=== PATIENT | female | born 1965 | race Caucasian/White ===

== ENCOUNTER 2016-11-04 09:50 | Inpatient (IN) | payer BC ==
[~2016-11-04] VITALS: Ht 165.1 cm; Wt 90.7 kg
[~2016-11-04 09:50] MED LIST: ASPI-482 PO; CANA100T PO; FLUT1DIS3 IH; INSU100V13 SQ; LANS30CA66 PO; LISI40TA PO; LORA-434 PO; MONT10TA6 PO; NAPR500T PO; OMEP40CA5 PO; ONDA4TAB7 PO; OXYC5CAP PO; SIMV40TA3 PO; SITA1TAB11 PO; VENTOLIN HFA18 GM INH
[2016-11-04] MEDS ORDERED: ASPIRIN 325 MG TABLET PO ONE (10:45)
[2016-11-04 10:54] LABS: CALCIUM 9.7 mg/dL (8.5-10.1); CREATININE 0.8 mg/dL (0.6-1.0); GFR 75.6; POTASSIUM 4.2 mmol/L (3.5-5.1)
[2016-11-04 10:56] LABS: MAGNESIUM 2.1 mg/dL (1.8-2.4)
[2016-11-04 10:59] LABS: BASO # 0.1 x10^3/uL (0.0-0.2); BASO % 1 % (0-3); EOS % 2 % (0-3); HEMATOCRIT 44.5 % (36.0-47.0); HEMOGLOBIN 15.1 g/dL (12.0-15.5); LYMPH # 1.9 x10^3/uL (1.0-4.8); LYMPH % 17 % (24-48); MEAN CORPUSCULAR HEMOGLOBIN 30 pg (25-35); MEAN CORPUSCULAR HGB CONC 34 g/dL (31-37); MEAN CORPUSCULAR VOLUME 87 fL (79-100); MONO % 6 % (0-9); NEUT % 74 % (31-73); PLATELET COUNT 198 x10^3/uL (140-400); RED BLOOD COUNT 5.13 x10^6/uL (3.50-5.40); RED CELL DISTRIBUTION WIDTH 14.1 % (11.5-14.5); WHITE BLOOD COUNT 11.1 x10^3/uL (4.0-11.0)
[2016-11-04 11:00] LABS: BILIRUBIN,URINE NEGATIVE (NEG); GLUCOSE,URINE >=1000 mg/dL (NEG); NITRITE,URINE NEGATIVE (NEG); PROTEIN,URINE NEGATIVE (NEG-TRACE); UROBILINOGEN,URINE 0.2 mg/dL (0.2 mg/dL)
[2016-11-04] MEDS ORDERED: ASPIRIN CHEWABLE 81 MG TABLET. PO ONE (11:00)
--- NOTE | 2016-11-04 11:01 | RAD ---
Indication chest pain. A single view of the chest was obtained. Note is made of a previous examination 07/20/2015. The heart and pulmonary vessels are normal. There is a granuloma in the left lung similar to the previous exam. An acute parenchymal infiltrate is not seen. There is no pleural fluid or pneumothorax. There is a density in the right chest probably reflecting scar. It is of doubtful clinical significance but follow-up imaging should be considered to confirm stability. IMPRESSION: No acute finding in the chest Density right chest, probably incidental
[2016-11-04 11:04] LABS: BARBITURATES NEG (NEG); BENZODIAZEPINES NEG (NEG); CANNABINOIDS POS (NEG); COCAINE NEG (NEG); METHADONE NEG (NEG); OPIATES NEG (NEG); PHENCYCLIDINE NEG (NEG)
[2016-11-04 11:10] LABS: CKMB MASS 1.9 ng/mL (0.0-3.6)
[2016-11-04 11:23] LABS: BACTERIA,URINE 0 /HPF (0-FEW); RBC,URINE 0 /HPF (0-2); SQUAMOUS EPITHELIAL CELL,UR FEW /LPF; WBC,URINE 0 /HPF (0-4)
[2016-11-04 11:31] LABS: INR 1.1 (0.8-1.1); PROTHROMBIN TIME PATIENT 13.4 SEC (11.7-14.0)
--- NOTE | 2016-11-04 11:33 | EKG ---
[facility] [address] [place] [address] Test Date: 2016-11-04 Test Time: 10:00:12 Pat Name: SHMUEL ACEVEDO Department: Room: Gender: F Aviation Electrician: : 1965 Requested By: LILIA LEES Order Number: [id number] Reading MD: Measurements Intervals Elizabeth Rate: 76 P: 34 IL: 134 QRS: 34 QRSD: 78 T: 41 QT: 340 QTc: 386 Interpretive Statements SINUS RHYTHM NORMAL ECG RI6.01 Unconfirmed report No previous ECG available for comparison
--- NOTE | 2016-11-04 12:50 | PHYS DOC ---
Past Medical History Past Medical History: Asthma, Diabetes-Type II, High Cholesterol, Hypertension Past Surgical History: Cholecystectomy, Tonsillectomy Additional Past Surgical Histo: Cyst removal on ovary Alcohol Use: Rarely Drug Use: Marijuana Adult General Chief Complaint Chief Complaint: CHEST PAIN HPI HPI Patient is a 51 year old female with history of diabetes type 2, hypertension, high cholesterol, who presents with a sharp 2 out of 10 left-sided chest pain that woke her up at 3 AM this morning and has been coming and going every 15 minutes. Patient states the pain radiates to her back. Patient states the pain is worse on deep breaths. She states the pain is better laying down. Review of Systems Review of Systems Constitutional: Denies fever or chills [] Eyes: Denies change in visual acuity, redness, or eye pain [] HENT: Denies nasal congestion or sore throat [] Respiratory: Denies cough or shortness of breath [] Cardiovascular: chest pain GI: Denies abdominal pain, nausea, vomiting, bloody stools or diarrhea [] : Denies dysuria or hematuria [] Musculoskeletal: Denies back pain or joint pain [] Integument: Denies rash or skin lesions [] Neurologic: Denies headache, focal weakness or sensory changes [] Endocrine: Denies polyuria or polydipsia [] Current Medications Current Medications Current Medications Medications (Trade) Dose Ordered Sig/Morris Start Time Stop Time Status Last Admin Dose Admin Acetaminophen (Tylenol) 650 mg PRN Q4HRS PRN 11/04/16 14:00 11/05/16 13:59 UNV Albuterol Sulfate (Ventolin Neb Soln) 2.5 mg RTQID 11/04/16 16:00 Aspirin (Charles Aspirin) 325 mg 1X ONCE 11/04/16 10:45 11/04/16 10:46 DC Aspirin (Children'S Aspirin) 162 mg 1X ONCE 11/04/16 11:00 11/04/16 11:01 DC 11/04/16 10:38 162 MG Aspirin (Ecotrin) 81 mg DAILY 11/05/16 09:00 Budesonide (Pulmicort) 0.5 mg RTBID 11/04/16 20:00 Docusate Sodium (Colace) 100 mg BID 11/04/16 21:00 Insulin Detemir (Levemir) 20 units HS 11/04/16 21:00 Ketorolac Tromethamine (Toradol) 15 mg PRN Q6HRS PRN 11/04/16 13:30 11/09/16 13:29 Lactulose 20 gm PRN Q12HR PRN 11/04/16 13:30 Linagliptin (Tradjenta) 5 mg DAILY 11/05/16 09:00 Lisinopril (Prinivil) 40 mg DAILY 11/05/16 09:00 Lorazepam (Ativan) 1 mg PRN QHS PRN 11/04/16 13:15 Magnesium Hydroxide (Milk Of Magnesia) 2,400 mg PRN Q12HR PRN 11/04/16 13:30 Metformin HCl (Glucophage) 1,000 mg BIDWMEALS 11/04/16 17:00 Montelukast Sodium (Singulair) 10 mg HS 11/04/16 21:00 Morphine Sulfate 2 mg PRN Q2HR PRN 11/04/16 13:30 Naproxen (Naprosyn) 500 mg PRN DAILY PRN 11/04/16 13:15 Nitroglycerin (Nitrostat) 0.4 mg PRN Q5MIN PRN 11/04/16 14:00 11/05/16 13:59 UNV Non-Formulary Medication 100 mg DAILYWBKFT 11/05/16 08:00 UNV Ondansetron HCl (Zofran Odt) 4 mg PRN BID PRN 11/04/16 13:30 Ondansetron HCl (Zofran) 4 mg PRN Q6HRS PRN 11/04/16 13:30 Oxycodone HCl (Roxicodone) 5 mg PRN Q4HRS PRN 11/04/16 13:30 Pantoprazole Sodium (Protonix) 40 mg DAILYAC 11/05/16 07:30 Prochlorperazine Edisylate (Compazine) 10 mg PRN Q6HRS PRN 11/04/16 13:30 Cancel Simvastatin (Zocor) 40 mg HS 11/04/16 21:00 Allergies Allergies Allergies Coded Allergies Type Severity Reaction Last Updated Verified Penicillins Allergy Intermediate rash 08/04/14 Yes Sulfa (Sulfonamide Antibiotics) Allergy Intermediate rash 08/04/14 Yes exenatide Allergy Intermediate N/V 08/04/14 Yes prochlorperazine Allergy Intermediate muscle rigidity 08/04/14 No Physical Exam Physical Exam Constitutional: Well developed, well nourished, no acute distress, non-toxic appearance. [] HENT: Normocephalic, atraumatic, bilateral external ears normal, oropharynx moist, no oral exudates, nose normal. [] Eyes: PERRLA, EOMI, conjunctiva normal, no discharge. [] Neck: Normal range of motion, no tenderness, supple, no stridor. [] Cardiovascular:Heart rate regular rhythm, no murmur [] Lungs & Thorax: Bilateral breath sounds clear to auscultation [] Abdomen: Bowel sounds normal, soft, no tenderness, no masses, no pulsatile masses. [] Skin: Warm, dry, no erythema, no rash. [] Back: No tenderness, no CVA tenderness. [] Extremities: No tenderness, no cyanosis, no clubbing, ROM intact, no edema. [] Neurologic: Alert and oriented X 3, normal motor function, normal sensory function, no focal deficits noted. [] Psychologic: Affect normal, judgement normal, mood normal. [] Current Patient Data Vital Signs Vital Signs Date Time Temp Pulse Resp B/P (MAP) Pulse Ox O2 Delivery O2 Flow Rate FiO2 11/04/16 12:38 67 14 116/65 (82) 97 Room Air 11/04/16 10:00 98.9 98.9 Lab Values Laboratory Tests Test 11/04/16 09:21 11/04/16 10:00 11/04/16 10:10 POC Urine HCG, Qualitative Hcg negative (Negative) Urine Collection Type Unknown Urine Color Yellow Urine Clarity Clear Urine pH 6.0 Urine Specific [place] 1.010 Urine Protein Negative mg/dL (NEG-TRACE) Urine Glucose (UA) >=1000 mg/dL (NEG) Urine Ketones (Stick) Negative mg/dL (NEG) Urine Blood Negative (NEG) Urine Nitrite Negative (NEG) Urine Bilirubin Negative (NEG) Urine Urobilinogen Dipstick 0.2 mg/dL (0.2 mg/dL) Urine Leukocyte Esterase Negative (NEG) Urine RBC 0 /HPF (0-2) Urine WBC 0 /HPF (0-4) Urine Squamous Epithelial Cells Few /LPF Urine Bacteria 0 /HPF (0-FEW) Urine Opiates Screen Neg (NEG) Urine Methadone Screen Neg (NEG) Urine Barbiturates Neg (NEG) Urine Phencyclidine Screen Neg (NEG) Urine Amphetamine/Methamphetamine Neg (NEG) Urine Benzodiazepines Screen Neg (NEG) Urine Cocaine Screen Neg (NEG) Urine Cannabinoids Screen Pos (NEG) Urine Ethyl Alcohol Neg (NEG) White Blood Count 11.1 x10^3/uL (4.0-11.0) H Red Blood Count 5.13 x10^6/uL (3.50-5.40) Hemoglobin 15.1 g/dL (12.0-15.5) Hematocrit 44.5 % (36.0-47.0) Mean Corpuscular Volume 87 fL (79-100) Mean Corpuscular Hemoglobin 30 pg (25-35) Mean Corpuscular Hemoglobin Concent 34 g/dL (31-37) Red Cell Distribution Width 14.1 % (11.5-14.5) Platelet Count 198 x10^3/uL (140-400) Neutrophils (%) (Auto) 74 % (31-73) H Lymphocytes (%) (Auto) 17 % (24-48) L Monocytes (%) (Auto) 6 % (0-9) Eosinophils (%) (Auto) 2 % (0-3) Basophils (%) (Auto) 1 % (0-3) Neutrophils # (Auto) 8.2 x10^3uL (1.8-7.7) H Lymphocytes # (Auto) 1.9 x10^3/uL (1.0-4.8) Monocytes # (Auto) 0.7 x10^3/uL (0.0-1.1) Eosinophils # (Auto) 0.2 x10^3/uL (0.0-0.7) Basophils # (Auto) 0.1 x10^3/uL (0.0-0.2) Prothrombin Time 13.4 SEC (11.7-14.0) Prothrombin Time INR 1.1 (0.8-1.1) D-Dimer (Rebecca) 0.39 ug/mlFEU (0.00-0.50) Sodium Level 137 mmol/L (136-145) Potassium Level 4.2 mmol/L (3.5-5.1) Chloride Level 103 mmol/L (98-107) Carbon Dioxide Level 21 mmol/L (21-32) Anion Gap 13 (6-14) Blood Urea Nitrogen 13 mg/dL (7-20) Creatinine 0.8 mg/dL (0.6-1.0) Estimated GFR (Cockcroft-Gault) 75.6 Glucose Level 143 mg/dL (70-99) H Calcium Level 9.7 mg/dL (8.5-10.1) Magnesium Level 2.1 mg/dL (1.8-2.4) Creatine Kinase 130 U/L (26-192) Creatine Kinase MB (Mass) 1.9 ng/mL (0.0-3.6) Creatine Kinase MB Relative Index 1.5 % (0-4) Troponin I Quantitative < 0.017 ng/mL (0.000-0.055) QR-Nhl-O-Type Natriuretic Peptide 46 pg/mL (0-124) Laboratory Tests 11/04/16 10:10 Laboratory Tests 11/04/16 10:10 EKG EKG 10:[address] Poole sinus rhythm heart rate 76 QRS interval 78 no STEMI [] Radiology/Procedures Radiology/Procedures [] Course & Med Decision Making Course & Med Decision Making Pertinent Labs and Imaging studies reviewed. (See chart for details) This is a 51-year-old female patient presented to the ED with a 2 out of 10 left -sided chest pain that has been going on intermittently since 3 AM this morning. Patient's cardiac workup is negative. She will be admitted for chest pain rule out. Consulted with Dr. Son who accepted patient for admission. Consult was made for cardiology Dragon Disclaimer Dragon Disclaimer This electronic medical record was generated, in whole or in part, using a voice recognition dictation system. Departure Departure Impression: Primary Impression: Chest pain Disposition: HOME, SELF-CARE Condition: STABLE Referrals: MAEGAN GAO MD (PCP) Problem Qualifiers Primary Impression: Chest pain Chest pain type: unspecified Qualified Codes: R07.9 - Chest pain, unspecified LILIA LEES INSURANCE CLAIMS CLERK Nov 04, 2016 12:50
--- NOTE | 2016-11-04 13:13 | PDOC1 ---
History and Physical Date of Admission Date of Admission DATE: 11/04/16 TIME: 13:06 Identification/Chief Complaint Chief Complaint chest pains Problems: Source Source: Caregiver, Chart review, Patient History of Present Illness History of Present Illness 51 y/o pleasant female with HTN, DM 2 hgba1c 7 in August 2016, dyslipidemia on statin, PCP Dr. Madden/Dr. Wang come sin for CP that woke her up from sleep 3 AM, HAs been having CP for maybe 2-3 mos now, intermittent, midsternal, no radiation to left arm, no precipitating or alleviating factor. CP happened like every 30 mins, described as heavy pains, no presyncope or syncopal sxs, no reports of diaphoresis. Feels nauseus, bucket at bedside but no emesis,. Went back to sleep 4:30 AM, but awoke at 6:30 am bec of CP again Last MPI was 8 yrs ago when she had CP involving radn left arm, that was neg,. OCcasional drinker, non smoker, grandparents of heart attack at age 80s Past Medical History Cardiovascular: HTN Pulmonary: Asthma GI: Other Psych: Depression Renal/: No pertinent hx Endocrine: Diabetes Past Surgical History Past Surgical History: Tonsillectomy, Other Family History Family History: No Significant, Coronary Artery Disease, Hypertension Social History Smoke: No ALCOHOL: occassional Drugs: None Current Problem List Problem List Problems Medical Problems: (1) Chest pain Status: Acute Problems: Current Medications Current Medications Current Medications Aspirin (Charles Aspirin) 325 mg 1X ONCE PO ; Start 11/04/16 at 10:45; Stop at 10:46; Status DC Aspirin (Children'S Aspirin) 162 mg 1X ONCE PO Last administered on 11/04/16t 10:38; Start 11/04/16 at 11:00; Stop 11/04/16 at 11:01; Status DC Active Scripts Active Reported Oxycodone Hcl 5 Mg Capsule 5 Mg PO Q4HRS PRN Invokana (Canagliflozin) 100 Mg Tablet 100 Mg PO DAILYWBKFT Simvastatin 40 Mg Tablet 40 Mg PO HS Naprosyn (Naproxen) 500 Mg Tablet 500 Mg PO PRN DAILY PRN Ativan (Lorazepam) 1 Mg Tablet 1 Mg PO PRN QHS PRN Ventolin Hfa Inhaler (Albuterol Sulfate) 18 Gm Hfa.aer.ad 2 Puff INH PRN QID PRN Zofran (Ondansetron Hcl) 4 Mg Tablet 4 Mg PO PRN BID PRN Levemir (Insulin Detemir) 100 Unit/1 Ml Vial 20 Unit SQ HS Janumet 50-1,000 Mg Tablet (Sitagliptin Phos/Metformin Hcl) 1 Each Tablet 1 Each PO BID Prevacid (Lansoprazole) 30 Mg Capsule.dr 30 Mg PO DAILY07 Aspir 81 (Aspirin) 81 Mg Tablet.dr 1 Tab PO DAILY Lisinopril 40 Mg Tablet 1 Tab PO DAILY Advair 250-50 Diskus (Fluticasone/Salmeterol) 1 Each Disk.w.dev 1 Puff IH BID Singulair Tablet (Montelukast Sodium) 10 Mg Tablet 10 Mg PO HS Allergies Allergies: Coded Allergies: Penicillins (Verified Allergy, Intermediate, rash, 08/04/14) Sulfa (Sulfonamide Antibiotics) (Verified Allergy, Intermediate, rash, 08/04) exenatide (Verified Allergy, Intermediate, N/V, 08/04/14) prochlorperazine (Unverified Allergy, Intermediate, muscle rigidity, ) ROS Review of System all 14 pt reveiwed, positive in HPI, all else is neg Physical Exam General: Alert, Oriented X3, Cooperative, No acute distress HEENT: Atraumatic, PERRLA, EOMI Lungs: Clear to auscultation, Normal air movement Heart: S1S2, RRR, no thrills, no rubs, no gallops, no murmurs Cardiovascular: S1, S2 Breasts: Normal, Rt breast nml w/o mass, Lt breast nml w/o mass, Nipples normal Abdomen: Normal bowel sounds, Soft, No tenderness, No hepatosplenomegaly, No masses Rectal Exam: not examined PELVIC: Nml ext genitalia Extremities: No clubbing Skin: No rashes, No breakdown, No significant lesion Neuro: Normal gait, Normal speech, Strength at 5/5 X4 ext, Normal tone, Sensation intact, Cranial nerves 3-12 NL, Reflexes 2+ Psych/Mental Status: Mental status NL, Mood NL Vitals Vitals Vital Signs Date Time Temp Pulse Resp B/P (MAP) Pulse Ox O2 Delivery O2 Flow Rate FiO2 11/04/16 10:38 70 141/77 (98) 96 Room Air 11/04/16 10:00 98.9 20 98.9 Labs Labs Laboratory Tests Test 11/04/16 09:21 11/04/16 10:00 11/04/16 10:10 Bedside Urine HCG, Qualitative Hcg negative (Negative) Urine Collection Type Unknown Urine Color Yellow Urine Clarity Clear Urine pH 6.0 Urine Specific [place] 1.010 Urine Protein Negative mg/dL (NEG-TRACE) Urine Glucose (UA) >=1000 mg/dL (NEG) Urine Ketones (Stick) Negative mg/dL (NEG) Urine Blood Negative (NEG) Urine Nitrite Negative (NEG) Urine Bilirubin Negative (NEG) Urine Urobilinogen Dipstick 0.2 mg/dL (0.2 mg/dL) Urine Leukocyte Esterase Negative (NEG) Urine RBC 0 /HPF (0-2) Urine WBC 0 /HPF (0-4) Urine Squamous Epithelial Cells Few /LPF Urine Bacteria 0 /HPF (0-FEW) Urine Opiates Screen Neg (NEG) Urine Methadone Screen Neg (NEG) Urine Barbiturates Neg (NEG) Urine Phencyclidine Screen Neg (NEG) Urine Amphetamine/Methamphetamine Neg (NEG) Urine Benzodiazepines Screen Neg (NEG) Urine Cocaine Screen Neg (NEG) Urine Cannabinoids Screen Pos (NEG) Urine Ethyl Alcohol Neg (NEG) White Blood Count 11.1 x10^3/uL (4.0-11.0) Red Blood Count 5.13 x10^6/uL (3.50-5.40) Hemoglobin 15.1 g/dL (12.0-15.5) Hematocrit 44.5 % (36.0-47.0) Mean Corpuscular Volume 87 fL (79-100) Mean Corpuscular Hemoglobin 30 pg (25-35) Mean Corpuscular Hemoglobin Concent 34 g/dL (31-37) Red Cell Distribution Width 14.1 % (11.5-14.5) Platelet Count 198 x10^3/uL (140-400) Neutrophils (%) (Auto) 74 % (31-73) Lymphocytes (%) (Auto) 17 % (24-48) Monocytes (%) (Auto) 6 % (0-9) Eosinophils (%) (Auto) 2 % (0-3) Basophils (%) (Auto) 1 % (0-3) Neutrophils # (Auto) 8.2 x10^3uL (1.8-7.7) Lymphocytes # (Auto) 1.9 x10^3/uL (1.0-4.8) Monocytes # (Auto) 0.7 x10^3/uL (0.0-1.1) Eosinophils # (Auto) 0.2 x10^3/uL (0.0-0.7) Basophils # (Auto) 0.1 x10^3/uL (0.0-0.2) Prothrombin Time 13.4 SEC (11.7-14.0) Prothromb Time International Ratio 1.1 (0.8-1.1) D-Dimer (Rebecca) 0.39 ug/mlFEU (0.00-0.50) Sodium Level 137 mmol/L (136-145) Potassium Level 4.2 mmol/L (3.5-5.1) Chloride Level 103 mmol/L (98-107) Carbon Dioxide Level 21 mmol/L (21-32) Anion Gap 13 (6-14) Blood Urea Nitrogen 13 mg/dL (7-20) Creatinine 0.8 mg/dL (0.6-1.0) Estimated GFR (Cockcroft-Gault) 75.6 Glucose Level 143 mg/dL (70-99) Calcium Level 9.7 mg/dL (8.5-10.1) Magnesium Level 2.1 mg/dL (1.8-2.4) Creatine Kinase 130 U/L (26-192) Creatine Kinase MB (Mass) 1.9 ng/mL (0.0-3.6) Creatine Kinase MB Relative Index 1.5 % (0-4) Troponin I Quantitative < 0.017 ng/mL (0.000-0.055) TM-Uqu-H-Type Natriuretic Peptide 46 pg/mL (0-124) Laboratory Tests Test 11/04/16 09:21 11/04/16 10:00 11/04/16 10:10 Bedside Urine HCG, Qualitative Hcg negative (Negative) Urine Collection Type Unknown Urine Color Yellow Urine Clarity Clear Urine pH 6.0 Urine Specific [place] 1.010 Urine Protein Negative mg/dL (NEG-TRACE) Urine Glucose (UA) >=1000 mg/dL (NEG) Urine Ketones (Stick) Negative mg/dL (NEG) Urine Blood Negative (NEG) Urine Nitrite Negative (NEG) Urine Bilirubin Negative (NEG) Urine Urobilinogen Dipstick 0.2 mg/dL (0.2 mg/dL) Urine Leukocyte Esterase Negative (NEG) Urine RBC 0 /HPF (0-2) Urine WBC 0 /HPF (0-4) Urine Squamous Epithelial Cells Few /LPF Urine Bacteria 0 /HPF (0-FEW) Urine Opiates Screen Neg (NEG) Urine Methadone Screen Neg (NEG) Urine Barbiturates Neg (NEG) Urine Phencyclidine Screen Neg (NEG) Urine Amphetamine/Methamphetamine Neg (NEG) Urine Benzodiazepines Screen Neg (NEG) Urine Cocaine Screen Neg (NEG) Urine Cannabinoids Screen Pos (NEG) Urine Ethyl Alcohol Neg (NEG) White Blood Count 11.1 x10^3/uL (4.0-11.0) Red Blood Count 5.13 x10^6/uL (3.50-5.40) Hemoglobin 15.1 g/dL (12.0-15.5) Hematocrit 44.5 % (36.0-47.0) Mean Corpuscular Volume 87 fL (79-100) Mean Corpuscular Hemoglobin 30 pg (25-35) Mean Corpuscular Hemoglobin Concent 34 g/dL (31-37) Red Cell Distribution Width 14.1 % (11.5-14.5) Platelet Count 198 x10^3/uL (140-400) Neutrophils (%) (Auto) 74 % (31-73) Lymphocytes (%) (Auto) 17 % (24-48) Monocytes (%) (Auto) 6 % (0-9) Eosinophils (%) (Auto) 2 % (0-3) Basophils (%) (Auto) 1 % (0-3) Neutrophils # (Auto) 8.2 x10^3uL (1.8-7.7) Lymphocytes # (Auto) 1.9 x10^3/uL (1.0-4.8) Monocytes # (Auto) 0.7 x10^3/uL (0.0-1.1) Eosinophils # (Auto) 0.2 x10^3/uL (0.0-0.7) Basophils # (Auto) 0.1 x10^3/uL (0.0-0.2) Prothrombin Time 13.4 SEC (11.7-14.0) Prothromb Time International Ratio 1.1 (0.8-1.1) D-Dimer (Rebecca) 0.39 ug/mlFEU (0.00-0.50) Sodium Level 137 mmol/L (136-145) Potassium Level 4.2 mmol/L (3.5-5.1) Chloride Level 103 mmol/L (98-107) Carbon Dioxide Level 21 mmol/L (21-32) Anion Gap 13 (6-14) Blood Urea Nitrogen 13 mg/dL (7-20) Creatinine 0.8 mg/dL (0.6-1.0) Estimated GFR (Cockcroft-Gault) 75.6 Glucose Level 143 mg/dL (70-99) Calcium Level 9.7 mg/dL (8.5-10.1) Magnesium Level 2.1 mg/dL (1.8-2.4) Creatine Kinase 130 U/L (26-192) Creatine Kinase MB (Mass) 1.9 ng/mL (0.0-3.6) Creatine Kinase MB Relative Index 1.5 % (0-4) Troponin I Quantitative < 0.017 ng/mL (0.000-0.055) XZ-Hwk-E-Type Natriuretic Peptide 46 pg/mL (0-124) VTE Prophylaxis Ordered VTE Prophylaxis Devices: Yes VTE Pharmacological Prophylaxi: Yes Assessment/Plan Assessment/Plan 1. Atypical CP in an adult at rest 2. HTN, controlled 3. DM2 with relatively good control, hgba1c 7 4. Dyslipidemia on statin 5. Obesity, BMI 33 PLAn: Admit CARds consult Cycle CE NPO until seen by cards Resume home meds Seen at ER 13 [facility] ER mid level provider KYLAH DUNNE MD Nov 04, 2016 13:13
[2016-11-04] MEDS ORDERED: NAPROXEN 500 MG TABLET PO PRN (13:15)
[2016-11-04] MEDS ORDERED: ACETAMINOPHEN 325 MG TABLET. PO PRN ×2 (13:30→14:00)
[2016-11-04] MEDS ORDERED: ONDANSETRON ODT 4 MG TAB.RAPDIS. PO PRN (13:30)
[2016-11-04] MEDS ORDERED: oxyCODONE IR 5 MG TABLET PO PRN (13:30)
[2016-11-04] MEDS ORDERED: KETOROLAC 15 MG/ML VIAL. IV PRN (13:30)
[2016-11-04] MEDS ORDERED: PROCHLORPERAZINE 10 MG/2 ML VIAL. IV PRN (13:30)
[2016-11-04] MEDS ORDERED: LACTULOSE 20 GM/30 ML SOLUTION. PO PRN (13:30)
[2016-11-04] MEDS ORDERED: MORPHINE SULFATE 2 MG/ML DISP.SYRIN. IV PRN (13:30)
[2016-11-04] MEDS ORDERED: ONDANSETRON PF 4 MG/2 ML VIAL. IV PRN (13:30)
[2016-11-04] MEDS ORDERED: MAGNESIUM HYDROXIDE 2,400 MG/30 ML ORAL.SUSP. PO PRN (13:30)
[2016-11-04] MEDS ORDERED: ALBUTEROL SULFATE 2.5 MG/3 ML NEBU. NEB PRN (13:45)
[2016-11-04] MEDS ORDERED: NITROGLYCERIN SUBLINGUAL 0.4 MG BOTTLE OF 25. SL PRN (14:00)
--- NOTE | 2016-11-04 14:46 | ACF ---
Admit Criteria Forms Admit Criteria Forms Admit Criteria Forms CARDIOLOGY GRG Clinical Indications for Admission to Inpatient Care ( Place 'X' for any and all applicable criteria): Hospital admission is needed for appropriate care of the patient because of ANY ONE of the following (1): [ ] I. Hemodynamic instability as indicated by ALL of the following (1)(2)(3) (4)(5) [ ]a) Vital signs or other findings not as expected for chronic patient condition or baseline [ ]b) Instability indicated by ANY ONE of the following: [ ]i) Hypotension [ ]ii) Symptomatic Tachycardia unresponsive to treatment ( e.g., analgesia, fluids, sedation as indicated) [ ]iii) Inadequate perfusion indicated by ANY ONE of the following: [ ] 1) Lactic acidosis (> 2 mmol/L) [ ] 2) New abnormal capillary refill (> 3 seconds) [ ] 3) Reduced urine output [ ] 4) New altered mental status [ ]iv) Orthostatic vital sign changes unresponsive to treatment (e.g., fluids) [ ]v) IV inotropic or vasopressor medication required to maintain adequate blood pressure or perfusion [ ] II. Severe heart failure as indicated by ANY ONE of the following(17)(18) [ ]a) Respiratory distress [ ]b) Hypotension [ ]c) Anasarca (refractory to outpatient therapy) [ ]d) Cardiac arrhythmias of immediate concern [ ]e) Myocardial ischemia [ ] III. Cardiac arrhythmias or findings of immediate concern indicated by ANY ONE of the following (19)(20): [ ] a) Heart rhythms that are inherently dangerous or unstable indicated by ANY ONE of the following (21)(22)(23): [ ] i) Resuscitated ventricular fibrillation or cardiac arrest [ ] ii) Ventricular escape rhythm [ ] iii) Sustained ventricular tachycardia (30 seconds or more of ventricular rhythm at greater than 100 beats per minute) [ ] iv) Nonsustained ventricular tachycardia and ANY ONE of the following: [ ] 1) Suspected cardiac ischemia as cause or consequence of ventricular tachycardia [ ] 2) In setting of acute myocarditis [ ] b) Unstable cardiac conduction defects indicated by ANY ONE of the following(23)(24)(25) [ ] i) Type II second-degree atrioventricular block [ ]ii) Third-degree atrioventricular block [ ]iii) New-onset left bundle branch block with suspected myocardial ischemia [ ]c) Any heart rhythm and ANY ONE of the following (21)(22)(26)(27) (28) [ ] i) Continuous long-term ECG monitoring needed (e.g., initiation of drug requiring monitoring for more than 24 hours) [ ] ii) Patient has automatic implanted cardioverter defibrillator that is repeatedly firing, malfunctioning, or in need of immediate adjustment of settings beyond the scope of ambulatory or observation care [ ]d) Heart rhythms of concern due to ANY ONE of the following: [ ] i) Hypotension [ ] ii) Respiratory distress [ ] iii) Association with other significant symptoms (e.g., bradycardia with syncope or ongoing dizziness, supraventricular tachycardia with chest pain (14)(15)(17) [ ] IV. Monitoring for cardiac contusion beyond the scope of observation care needed [A](30)(31)(32) [ ] V. Surgical or device complication (e.g., valve replacement complication , pacemaker dysfunction) (35)(41)(44)(45)(46) [ ] . Inpatient palliative care needed. [B](49) Also use Inpatient Palliative Care Criteria [ ] VII. Nonbacterial thrombotic (marantic) endocarditis (36)(43)(47)(48) [X ] VIII. Cardiology condition, symptom, or finding for which emergency and observation care has failed or are not considered appropriate. [ ] IX. Acute valvular disease requiring inpatient as indicated by ANY ONE of the following (41) [ ]a) Acute valvular regurgitation (42) [ ]b) Noninfectious valvulitis (43) [ ]c) Obstructive valve thrombosis [ ]d) Paravalvular leak [ ]e) Other significant valvular disorder remaining after emergency or observation level of care (as appropriate) [ ]X. Pericardial disease requiring inpatient treatment as indicated by ANY ONE of the following (33)(34)(35)(36)(37) [ ]a) Suspected tamponade (38)(39)(40) [ ]b) Hemopericardium [ ]c) Other significant pericardial disorder remaining after emergency or observation level of care (as appropriate) [ ] XI. Cardiac ischemia beyond scope of emergency and observation care. [ ] XII. Hypertension requiring inpatient treatment as indicated by ANY ONE of the following (6)(7)(8) [ ]a) SBP greater than 220 mm Hg or DBP greater than 120 mmHg despite treatment [ ]b) SBP greater than 140 mm Hg or DBP greater than 100 mm Hg with evidence of acute end organ damage as indicated by ANY ONE of the following [ ] i) Encephalopathy [ ] ii) Acute renal failure as indicated by new onset of ANY ONE of the following (9)(10)(11)(12)(13) [ ]1) 3-fold rise in serum creatinine from baseline [ ]2) Serum creatinine greater than 4 mg/dL ( 354 micromoles/L) with acute rise greater than 0.5 mg/dL (44.2 micromoles/L) [ ]3) Reduction of more than 75% in estimated glomerular filtration rate from baseline [ ]4) Estimated glomerular filtration rate less than 35 mL/min/1.73m2 (0.59 mL/sec/1.73m2) in child up to 18 years of age [ ]5) Cessation of urine output indicated by ALL of the following [ ]A. Adequate volume status [ ]B. Inadequate urine output as indicated by ANY ONE of the following [ ]a. Urine output less than 0.3 mL/kg/hr for 24 hours [ ]b. Anuria (urine output less than 0.1 mL/kg/hr) for 12 hours [ ] iii) Aortic dissection [ ] iv) Myocardial Ischemia [ ] v) Left ventricular heart failure [ ]vi) Retinal Hemorrhage [ ]vii) Other significant finding [ ]c) Hypertension in child requiring inpatient treatment as indicated by ALL of the following(14)(15)(16) [ ] i) Outpatient treatment not effective, not available, or not appropriate [ ]ii) SBP or DBP greater than 95th percentile for age [ ]iii) Evidence of acute end organ damage as indicated by ANY ONE of the following [ ]1) Altered mental status [ ]2) Acute renal failure as indicated by new onset of ANY ONE of the following(9)(10)(11)(12)(13) [ ]A. 3-fold rise in serum creatinine from baseline [ ]B. Serum creatinine greater than 4 mg/dL (354 micromoles/L) with acute rise greater than 0.5 mg/dL (44.2 micromoles/L) [ ]C. Reduction of more than 75% in estimated glomerular filtration rate from baseline [ ]D. Estimated glomerular filtration rate less than 35 mL/min/1.73m2 (0.59 mL/sec/1.73m2) in child up to 18 years of age [ ]E. Cessation of urine output indicated by ALL of the following [ ]a. Adequate volume status [ ]b. Inadequate urine output as indicated by ANY ONE of the following [ ]i) Urine output less than 0.3 mL/kg/hr for 24 hours [ ]ii) Anuria ( urine output less than 0.1 mL/kg/hr) for 12 hours [ ]3) Severe headache [ ]4) Visual disturbance [ ]5) Retinal hemorrhage [ ]6) Other significant finding [ ]XIII. Complications of transplanted heart indicated by ANY ONE of the following(61): [ ]a) Acute graft rejection requiring inpatient management (eg, intravenous immunosuppression)(62)(63) [ ]b) Acute graft heart failure indicated by ANY ONE of the following(64): [ ]i) Hemodynamic instability [ ]ii) Cardiac arrhythmias of immediate concern [ ]iii) Pulmonary edema that is very severe (eg, mechanical ventilation needed, imminent or likely, need for 100% oxygen to keep oxygen saturation above 90%) [ ]iv) Pulmonary edema that is persistent as indicated by ALL of the following: [ ]1) New need for oxygen therapy to keep oxygen saturation above 90% (or increased FiO2 need from baseline) [ ]2) Has not improved sufficiently with emergency department or observation care IV diuretics or other heart failure treatments[E] [ ]v) Altered mental status that is severe or persistent [ ]vi) Increased creatinine (new on laboratory test) with reduction of more than 50% in estimated glomerular filtration rate from baseline [ ]vii) Progressively (ongoing) rising creatinine (known from past laboratory test) with reduction of more than 25% in estimated glomerular filtration rate from baseline [ ]viii) Acute renal failure [ ]ix) Acute peripheral ischemia (eg, examination shows pulseless, cool, mottled, or cyanotic extremity) [ ]x) Pulmonary artery catheter monitoring needed [ ]xi) Other sign or symptom of heart failure requiring inpatient treatment (ie, too severe or not responsive to outpatient and observation care treatment) [ ]c) Infection requiring inpatient management (eg, Hemodynamic instability, need for intravenous antimicrobial treatment)(66)(67)(68)(69)(70) [ ]d) Cardiac allograft vasculopathy requiring inpatient management ( eg evidence of cardiac ischemia)(71) [ ]e) Other complication of transplanted heart (eg, stroke, severe pulmonary hypertension, severe valvular dysfunction) requiring inpatient management(72) The original [facility] content created by [facility] [employer] has been revised. The portions of the content which have been revised are identified through the use of italic text or in bold, and [facility] has neither reviewed nor approved the modified material. All other unmodified content is copyright [facility]. Please see references footnoted in the original [facility] edition 2016 HELEN MARTINEZ Nov 04, 2016 14:46
--- NOTE | 2016-11-04 15:37 | PDOC2 ---
CARDIAC CONSULT DATE OF CONSULT Date of Consult DATE: 11/04/16 TIME: 15:37 REASON FOR CONSULT Reason for Consult: Chest Pain REFERRING PHYSICIAN Referring Physician: Paty Cramer APRN SOURCE Source: Chart review, Patient HISTORY OF PRESENT ILLNESS HISTORY OF PRESENT ILLNESS This is a 5 yo female who presented with complaints of chest pain. Patient reports pain has been ongoing intermittently for the last couple of months. Most recently, patient woke up at 3am this morning with squeezing sensation in her left chest. Subsequently became sharp. Associated with nausea and diaphoresis. No palpitations or SOA. Does reports having some dizziness over the weekend, which has also been occurring intermittently over the last couple of months. Generally, this is associated with feeling flush and having a "butterfly" rash on her face and is associated with nausea. Resolves after a couple of minutes without intervention. No prior h/o CAD or previous cardiac workup. PAST MEDICAL HISTORY Cardiovascular: HTN, Hyperlipidemia Pulmonary: No pertinent hx GI: GERD Heme/Onc: No pertinent hx Hepatobiliary: No pertinent hx Psych: No pertinent hx Rheumatologic: No pertinent hx Infectious disease: No pertinent hx ENT: No pertinent hx Renal/: No pertinent hx Endocrine: Diabetes, Other (PCOS) PAST SURGICAL HISTORY Past Surgical History: Cholecystectomy, Tonsillectomy FAMILY HISTORY Family History: Other (noncontributory ) SOCIAL HISTORY Smoke: No ALCOHOL: occassional Drugs: Marijuana (occasioal) Lives: with Family CURRENT MEDICATIONS CURRENT MEDICATIONS Current Medications Medications (Trade) Dose Ordered Sig/Morris Route PRN Reason Start Time Stop Time Status Last Admin Dose Admin Aspirin (Children'S Aspirin) 162 mg 1X ONCE PO 11/04/16 11:00 11/04/16 11:01 DC 11/04/16 10:38 ALLERGIES ALLERGIES: Coded Allergies: Penicillins (Verified Allergy, Intermediate, rash, 08/04/14) Sulfa (Sulfonamide Antibiotics) (Verified Allergy, Intermediate, rash, 08/04) exenatide (Verified Allergy, Intermediate, N/V, 08/04/14) prochlorperazine (Unverified Allergy, Intermediate, muscle rigidity, ) ROS Review of System 14 point ROS conducted with pertinent positives noted above in HPI. PHYSICAL EXAM General: Alert, Oriented X3, Cooperative, No acute distress HEENT: Atraumatic, Mucous membr. moist/pink Lungs: Clear to auscultation, Normal air movement Heart: Regular rate, Normal S1, Normal S2, Other (soft systolic murmur. tele SR ) Abdomen: Soft, No tenderness, Other (truncal obesity ) Skin: No significant lesion Neuro: Normal speech, Sensation intact Psych/Mental Status: Mental status NL, Mood NL MUSCULOSKELETAL: No joint tenderness VITALS VITALS Vital Signs Date Time Temp Pulse Resp B/P (MAP) Pulse Ox O2 Delivery O2 Flow Rate FiO2 11/04/16 14:30 69 13 109/65 (80) 96 Room Air 11/04/16 10:00 98.9 98.9 LABS Lab: Laboratory Tests Test 11/04/16 09:21 11/04/16 10:00 11/04/16 10:10 Bedside Urine HCG, Qualitative Hcg negative (Negative) Urine Collection Type Unknown Urine Color Yellow Urine Clarity Clear Urine pH 6.0 Urine Specific [place] 1.010 Urine Protein Negative mg/dL (NEG-TRACE) Urine Glucose (UA) >=1000 mg/dL (NEG) Urine Ketones (Stick) Negative mg/dL (NEG) Urine Blood Negative (NEG) Urine Nitrite Negative (NEG) Urine Bilirubin Negative (NEG) Urine Urobilinogen Dipstick 0.2 mg/dL (0.2 mg/dL) Urine Leukocyte Esterase Negative (NEG) Urine RBC 0 /HPF (0-2) Urine WBC 0 /HPF (0-4) Urine Squamous Epithelial Cells Few /LPF Urine Bacteria 0 /HPF (0-FEW) Urine Opiates Screen Neg (NEG) Urine Methadone Screen Neg (NEG) Urine Barbiturates Neg (NEG) Urine Phencyclidine Screen Neg (NEG) Urine Amphetamine/Methamphetamine Neg (NEG) Urine Benzodiazepines Screen Neg (NEG) Urine Cocaine Screen Neg (NEG) Urine Cannabinoids Screen Pos (NEG) Urine Ethyl Alcohol Neg (NEG) White Blood Count 11.1 x10^3/uL (4.0-11.0) Red Blood Count 5.13 x10^6/uL (3.50-5.40) Hemoglobin 15.1 g/dL (12.0-15.5) Hematocrit 44.5 % (36.0-47.0) Mean Corpuscular Volume 87 fL (79-100) Mean Corpuscular Hemoglobin 30 pg (25-35) Mean Corpuscular Hemoglobin Concent 34 g/dL (31-37) Red Cell Distribution Width 14.1 % (11.5-14.5) Platelet Count 198 x10^3/uL (140-400) Neutrophils (%) (Auto) 74 % (31-73) Lymphocytes (%) (Auto) 17 % (24-48) Monocytes (%) (Auto) 6 % (0-9) Eosinophils (%) (Auto) 2 % (0-3) Basophils (%) (Auto) 1 % (0-3) Neutrophils # (Auto) 8.2 x10^3uL (1.8-7.7) Lymphocytes # (Auto) 1.9 x10^3/uL (1.0-4.8) Monocytes # (Auto) 0.7 x10^3/uL (0.0-1.1) Eosinophils # (Auto) 0.2 x10^3/uL (0.0-0.7) Basophils # (Auto) 0.1 x10^3/uL (0.0-0.2) Prothrombin Time 13.4 SEC (11.7-14.0) Prothromb Time International Ratio 1.1 (0.8-1.1) D-Dimer (Rebecca) 0.39 ug/mlFEU (0.00-0.50) Sodium Level 137 mmol/L (136-145) Potassium Level 4.2 mmol/L (3.5-5.1) Chloride Level 103 mmol/L (98-107) Carbon Dioxide Level 21 mmol/L (21-32) Anion Gap 13 (6-14) Blood Urea Nitrogen 13 mg/dL (7-20) Creatinine 0.8 mg/dL (0.6-1.0) Estimated GFR (Cockcroft-Gault) 75.6 Glucose Level 143 mg/dL (70-99) Calcium Level 9.7 mg/dL (8.5-10.1) Magnesium Level 2.1 mg/dL (1.8-2.4) Creatine Kinase 130 U/L (26-192) Creatine Kinase MB (Mass) 1.9 ng/mL (0.0-3.6) Creatine Kinase MB Relative Index 1.5 % (0-4) Troponin I Quantitative < 0.017 ng/mL (0.000-0.055) IV-Tlt-O-Type Natriuretic Peptide 46 pg/mL (0-124) ASSESSMENT/PLAN ASSESSMENT/PLAN 1. Chest pain, atypical; initial trop negative. EKG without significant acute changes 2. Dizziness; no acute events on telemetry thus far 3. Hypertension; controlled. resume home anti HTN therapy 4. Hyperlipidemia; on statin 5. Diabetes 6. PCOS Recommendations 1. Troponin series. Check lipids, TSH 2. Check echo to assess LV function/presence of structural abnormalities contributing to dizziness 3. NPO p MN. Given symptomatology and significant risk factors, will proceed with MPI in am to r/o ischemic etiology. 4. Monitor telemetry 5. If above unrevealing, could consider outpatient event monitor to r/o significant arrhythmias contributing to dizziness. Problems: SAMANTHA PATEL APRN Nov 04, 2016 15:37
[2016-11-04 16:34] VITALS: BP 109/65
[2016-11-04] MEDS: ALBUTEROL SULFATE 2.5 MG/3 ML NEBU. NEB SCH ×2 (16:54→19:34)
[2016-11-04 19:00] VITALS: BP 131/80
[2016-11-04] MEDS: BUDESONIDE 0.5 MG/2 ML NEBU. NEB SCH (19:34)
[2016-11-04] MEDS: INSULIN DETEMIR 300 UNITS/3 ML INSULN.PEN. SQ SCH (21:00)
[2016-11-04] MEDS: MONTELUKAST SODIUM 10 MG TABLET. PO SCH (21:27)
[2016-11-04] MEDS: DOCUSATE SODIUM 100 MG CAPSULE. PO SCH (21:27)
[2016-11-04] MEDS: SIMVASTATIN 40 MG TABLET. PO SCH (21:28)
[2016-11-04] MEDS: LORazepam 1 MG TABLET PO PRN (21:36)
[2016-11-04 23:00] VITALS: BP 118/67
[2016-11-05 03:00] VITALS: BP 123/68
[2016-11-05 05:17] LABS: BASO % 0 % (0-3); EOS % 4 % (0-3); HEMATOCRIT 45.9 % (36.0-47.0); HEMOGLOBIN 15.1 g/dL (12.0-15.5); LYMPH # 2.6 x10^3/uL (1.0-4.8); LYMPH % 30 % (24-48); MEAN CORPUSCULAR HEMOGLOBIN 29 pg (25-35); MEAN CORPUSCULAR HGB CONC 33 g/dL (31-37); MEAN CORPUSCULAR VOLUME 89 fL (79-100); MONO % 9 % (0-9); NEUT % 57 % (31-73); PLATELET COUNT 183 x10^3/uL (140-400); RED BLOOD COUNT 5.17 x10^6/uL (3.50-5.40); WHITE BLOOD COUNT 8.8 x10^3/uL (4.0-11.0)
[2016-11-05 05:48] LABS: CREATININE 0.6 mg/dL (0.6-1.0); GFR 105.4; POTASSIUM 3.9 mmol/L (3.5-5.1)
[2016-11-05 07:00] VITALS: BP 115/75
[2016-11-05] MEDS: NON FORMULARY ITEM (Canagliflozin (Invokana) 100 MG) PO SCH (08:00)
[2016-11-05] MEDS ORDERED: REGADENOSON 0.4 MG/5 ML DISP.SYRIN. IV ONE (08:00)
[2016-11-05] MEDS: ALBUTEROL SULFATE 2.5 MG/3 ML NEBU. NEB SCH ×4 (08:26→19:29)
[2016-11-05] MEDS: BUDESONIDE 0.5 MG/2 ML NEBU. NEB SCH ×2 (08:26→19:29)
[2016-11-05] MEDS: DOCUSATE SODIUM 100 MG CAPSULE. PO SCH ×2 (09:00→21:20)
--- NOTE | 2016-11-05 09:51 | PDOC ---
PROGRESS NOTES Chief Complaint Chief Complaint 1. Atypical CP in an adult at rest 2. HTN, controlled 3. DM2 with relatively good control, hgba1c 7 4. Dyslipidemia on statin 5. Obesity, BMI 33 History of Present Illness History of Present Illness Out having echo then MPI as per cards note Seen by me at ER less than 12 hrs ago NO overnight calls VS remain stable LAbs stable PLAn: Await from tests Vitals Vitals Vital Signs Date Time Temp Pulse Resp B/P (MAP) Pulse Ox O2 Delivery O2 Flow Rate FiO2 11/05/16 08:30 98 Room Air 11/05/16 07:00 98.4 94 18 115/75 (88) 98.4 Physical Exam General: Alert, Oriented X3, Cooperative, No acute distress Heart: Regular rate, Normal S1, Normal S2, Other (soft systolic murmur. tele SR ) Abdomen: Soft, No tenderness, Other (truncal obesity ) Extremities: No clubbing Skin: No significant lesion Labs LABS Laboratory Tests Test 11/04/16 10:00 11/04/16 10:10 11/04/16 15:50 11/04/16 17:45 Urine Collection Type Unknown Urine Color Yellow Urine Clarity Clear Urine pH 6.0 Urine Specific [place] 1.010 Urine Protein Negative mg/dL (NEG-TRACE) Urine Glucose (UA) >=1000 mg/dL (NEG) Urine Ketones (Stick) Negative mg/dL (NEG) Urine Blood Negative (NEG) Urine Nitrite Negative (NEG) Urine Bilirubin Negative (NEG) Urine Urobilinogen Dipstick 0.2 mg/dL (0.2 mg/dL) Urine Leukocyte Esterase Negative (NEG) Urine RBC 0 /HPF (0-2) Urine WBC 0 /HPF (0-4) Urine Squamous Epithelial Cells Few /LPF Urine Bacteria 0 /HPF (0-FEW) Urine Opiates Screen Neg (NEG) Urine Methadone Screen Neg (NEG) Urine Barbiturates Neg (NEG) Urine Phencyclidine Screen Neg (NEG) Urine Amphetamine/Methamphetamine Neg (NEG) Urine Benzodiazepines Screen Neg (NEG) Urine Cocaine Screen Neg (NEG) Urine Cannabinoids Screen Pos (NEG) Urine Ethyl Alcohol Neg (NEG) White Blood Count 11.1 x10^3/uL (4.0-11.0) Red Blood Count 5.13 x10^6/uL (3.50-5.40) Hemoglobin 15.1 g/dL (12.0-15.5) Hematocrit 44.5 % (36.0-47.0) Mean Corpuscular Volume 87 fL (79-100) Mean Corpuscular Hemoglobin 30 pg (25-35) Mean Corpuscular Hemoglobin Concent 34 g/dL (31-37) Red Cell Distribution Width 14.1 % (11.5-14.5) Platelet Count 198 x10^3/uL (140-400) Neutrophils (%) (Auto) 74 % (31-73) Lymphocytes (%) (Auto) 17 % (24-48) Monocytes (%) (Auto) 6 % (0-9) Eosinophils (%) (Auto) 2 % (0-3) Basophils (%) (Auto) 1 % (0-3) Neutrophils # (Auto) 8.2 x10^3uL (1.8-7.7) Lymphocytes # (Auto) 1.9 x10^3/uL (1.0-4.8) Monocytes # (Auto) 0.7 x10^3/uL (0.0-1.1) Eosinophils # (Auto) 0.2 x10^3/uL (0.0-0.7) Basophils # (Auto) 0.1 x10^3/uL (0.0-0.2) Prothrombin Time 13.4 SEC (11.7-14.0) Prothromb Time International Ratio 1.1 (0.8-1.1) D-Dimer (Rebecca) 0.39 ug/mlFEU (0.00-0.50) Sodium Level 137 mmol/L (136-145) Potassium Level 4.2 mmol/L (3.5-5.1) Chloride Level 103 mmol/L (98-107) Carbon Dioxide Level 21 mmol/L (21-32) Anion Gap 13 (6-14) Blood Urea Nitrogen 13 mg/dL (7-20) Creatinine 0.8 mg/dL (0.6-1.0) Estimated GFR (Cockcroft-Gault) 75.6 Glucose Level 143 mg/dL (70-99) Calcium Level 9.7 mg/dL (8.5-10.1) Magnesium Level 2.1 mg/dL (1.8-2.4) Creatine Kinase 130 U/L (26-192) Creatine Kinase MB (Mass) 1.9 ng/mL (0.0-3.6) Creatine Kinase MB Relative Index 1.5 % (0-4) Troponin I Quantitative < 0.017 ng/mL (0.000-0.055) < 0.017 ng/mL (0.000-0.055) BT-Ztb-N-Type Natriuretic Peptide 46 pg/mL (0-124) Glucose (Fingerstick) 124 mg/dL (70-99) Test 11/04/16 21:45 11/05/16 04:30 11/05/16 07:05 Glucose (Fingerstick) 128 mg/dL (70-99) 116 mg/dL (70-99) White Blood Count 8.8 x10^3/uL (4.0-11.0) Red Blood Count 5.17 x10^6/uL (3.50-5.40) Hemoglobin 15.1 g/dL (12.0-15.5) Hematocrit 45.9 % (36.0-47.0) Mean Corpuscular Volume 89 fL (79-100) Mean Corpuscular Hemoglobin 29 pg (25-35) Mean Corpuscular Hemoglobin Concent 33 g/dL (31-37) Red Cell Distribution Width 14.0 % (11.5-14.5) Platelet Count 183 x10^3/uL (140-400) Neutrophils (%) (Auto) 57 % (31-73) Lymphocytes (%) (Auto) 30 % (24-48) Monocytes (%) (Auto) 9 % (0-9) Eosinophils (%) (Auto) 4 % (0-3) Basophils (%) (Auto) 0 % (0-3) Neutrophils # (Auto) 5.0 x10^3uL (1.8-7.7) Lymphocytes # (Auto) 2.6 x10^3/uL (1.0-4.8) Monocytes # (Auto) 0.8 x10^3/uL (0.0-1.1) Eosinophils # (Auto) 0.3 x10^3/uL (0.0-0.7) Basophils # (Auto) 0.0 x10^3/uL (0.0-0.2) Sodium Level 137 mmol/L (136-145) Potassium Level 3.9 mmol/L (3.5-5.1) Chloride Level 104 mmol/L (98-107) Carbon Dioxide Level 25 mmol/L (21-32) Anion Gap 8 (6-14) Blood Urea Nitrogen 12 mg/dL (7-20) Creatinine 0.6 mg/dL (0.6-1.0) Estimated GFR (Cockcroft-Gault) 105.4 Glucose Level 123 mg/dL (70-99) Calcium Level 9.0 mg/dL (8.5-10.1) Creatine Kinase 94 U/L (26-192) Creatine Kinase MB (Mass) 1.0 ng/mL (0.0-3.6) Creatine Kinase MB Relative Index 1.1 % (0-4) Troponin I Quantitative < 0.017 ng/mL (0.000-0.055) Triglycerides Level 147 mg/dL (0-150) Cholesterol Level 155 mg/dL (0-200) LDL Cholesterol, Calculated 87 mg/dL (0-100) VLDL Cholesterol, Calculated 29 mg/dL (0-40) Non-HDL Cholesterol Calculated 116 mg/dL (0-129) HDL Cholesterol 39 mg/dL (40-60) Cholesterol/HDL Ratio 4.0 Thyroid Stimulating Hormone (TSH) 0.831 uIU/mL (0.358-3.74) Review of Systems Review of Systems out having tests Assessment and Plan Assessmemt and Plan Problems Medical Problems: (1) Chest pain Status: Acute Problems: Comment Review of Relevant I have reviewed the following items rome (where applicable) has been applied. Labs Laboratory Tests Test 11/04/16 09:21 11/04/16 10:00 11/04/16 10:10 11/04/16 15:50 Bedside Urine HCG, Qualitative Hcg negative (Negative) Urine Collection Type Unknown Urine Color Yellow Urine Clarity Clear Urine pH 6.0 Urine Specific [place] 1.010 Urine Protein Negative mg/dL (NEG-TRACE) Urine Glucose (UA) >=1000 mg/dL (NEG) Urine Ketones (Stick) Negative mg/dL (NEG) Urine Blood Negative (NEG) Urine Nitrite Negative (NEG) Urine Bilirubin Negative (NEG) Urine Urobilinogen Dipstick 0.2 mg/dL (0.2 mg/dL) Urine Leukocyte Esterase Negative (NEG) Urine RBC 0 /HPF (0-2) Urine WBC 0 /HPF (0-4) Urine Squamous Epithelial Cells Few /LPF Urine Bacteria 0 /HPF (0-FEW) Urine Opiates Screen Neg (NEG) Urine Methadone Screen Neg (NEG) Urine Barbiturates Neg (NEG) Urine Phencyclidine Screen Neg (NEG) Urine Amphetamine/Methamphetamine Neg (NEG) Urine Benzodiazepines Screen Neg (NEG) Urine Cocaine Screen Neg (NEG) Urine Cannabinoids Screen Pos (NEG) Urine Ethyl Alcohol Neg (NEG) White Blood Count 11.1 x10^3/uL (4.0-11.0) Red Blood Count 5.13 x10^6/uL (3.50-5.40) Hemoglobin 15.1 g/dL (12.0-15.5) Hematocrit 44.5 % (36.0-47.0) Mean Corpuscular Volume 87 fL (79-100) Mean Corpuscular Hemoglobin 30 pg (25-35) Mean Corpuscular Hemoglobin Concent 34 g/dL (31-37) Red Cell Distribution Width 14.1 % (11.5-14.5) Platelet Count 198 x10^3/uL (140-400) Neutrophils (%) (Auto) 74 % (31-73) Lymphocytes (%) (Auto) 17 % (24-48) Monocytes (%) (Auto) 6 % (0-9) Eosinophils (%) (Auto) 2 % (0-3) Basophils (%) (Auto) 1 % (0-3) Neutrophils # (Auto) 8.2 x10^3uL (1.8-7.7) Lymphocytes # (Auto) 1.9 x10^3/uL (1.0-4.8) Monocytes # (Auto) 0.7 x10^3/uL (0.0-1.1) Eosinophils # (Auto) 0.2 x10^3/uL (0.0-0.7) Basophils # (Auto) 0.1 x10^3/uL (0.0-0.2) Prothrombin Time 13.4 SEC (11.7-14.0) Prothromb Time International Ratio 1.1 (0.8-1.1) D-Dimer (Rebecca) 0.39 ug/mlFEU (0.00-0.50) Sodium Level 137 mmol/L (136-145) Potassium Level 4.2 mmol/L (3.5-5.1) Chloride Level 103 mmol/L (98-107) Carbon Dioxide Level 21 mmol/L (21-32) Anion Gap 13 (6-14) Blood Urea Nitrogen 13 mg/dL (7-20) Creatinine 0.8 mg/dL (0.6-1.0) Estimated GFR (Cockcroft-Gault) 75.6 Glucose Level 143 mg/dL (70-99) Calcium Level 9.7 mg/dL (8.5-10.1) Magnesium Level 2.1 mg/dL (1.8-2.4) Creatine Kinase 130 U/L (26-192) Creatine Kinase MB (Mass) 1.9 ng/mL (0.0-3.6) Creatine Kinase MB Relative Index 1.5 % (0-4) Troponin I Quantitative < 0.017 ng/mL (0.000-0.055) IE-Iza-E-Type Natriuretic Peptide 46 pg/mL (0-124) Glucose (Fingerstick) 124 mg/dL (70-99) Test 11/04/16 17:45 11/04/16 21:45 11/05/16 04:30 11/05/16 07:05 Troponin I Quantitative < 0.017 ng/mL (0.000-0.055) < 0.017 ng/mL (0.000-0.055) Glucose (Fingerstick) 128 mg/dL (70-99) 116 mg/dL (70-99) White Blood Count 8.8 x10^3/uL (4.0-11.0) Red Blood Count 5.17 x10^6/uL (3.50-5.40) Hemoglobin 15.1 g/dL (12.0-15.5) Hematocrit 45.9 % (36.0-47.0) Mean Corpuscular Volume 89 fL (79-100) Mean Corpuscular Hemoglobin 29 pg (25-35) Mean Corpuscular Hemoglobin Concent 33 g/dL (31-37) Red Cell Distribution Width 14.0 % (11.5-14.5) Platelet Count 183 x10^3/uL (140-400) Neutrophils (%) (Auto) 57 % (31-73) Lymphocytes (%) (Auto) 30 % (24-48) Monocytes (%) (Auto) 9 % (0-9) Eosinophils (%) (Auto) 4 % (0-3) Basophils (%) (Auto) 0 % (0-3) Neutrophils # (Auto) 5.0 x10^3uL (1.8-7.7) Lymphocytes # (Auto) 2.6 x10^3/uL (1.0-4.8) Monocytes # (Auto) 0.8 x10^3/uL (0.0-1.1) Eosinophils # (Auto) 0.3 x10^3/uL (0.0-0.7) Basophils # (Auto) 0.0 x10^3/uL (0.0-0.2) Sodium Level 137 mmol/L (136-145) Potassium Level 3.9 mmol/L (3.5-5.1) Chloride Level 104 mmol/L (98-107) Carbon Dioxide Level 25 mmol/L (21-32) Anion Gap 8 (6-14) Blood Urea Nitrogen 12 mg/dL (7-20) Creatinine 0.6 mg/dL (0.6-1.0) Estimated GFR (Cockcroft-Gault) 105.4 Glucose Level 123 mg/dL (70-99) Calcium Level 9.0 mg/dL (8.5-10.1) Creatine Kinase 94 U/L (26-192) Creatine Kinase MB (Mass) 1.0 ng/mL (0.0-3.6) Creatine Kinase MB Relative Index 1.1 % (0-4) Triglycerides Level 147 mg/dL (0-150) Cholesterol Level 155 mg/dL (0-200) LDL Cholesterol, Calculated 87 mg/dL (0-100) VLDL Cholesterol, Calculated 29 mg/dL (0-40) Non-HDL Cholesterol Calculated 116 mg/dL (0-129) HDL Cholesterol 39 mg/dL (40-60) Cholesterol/HDL Ratio 4.0 Thyroid Stimulating Hormone (TSH) 0.831 uIU/mL (0.358-3.74) Laboratory Tests Test 11/04/16 10:00 11/04/16 10:10 11/04/16 15:50 11/04/16 17:45 Urine Collection Type Unknown Urine Color Yellow Urine Clarity Clear Urine pH 6.0 Urine Specific [place] 1.010 Urine Protein Negative mg/dL (NEG-TRACE) Urine Glucose (UA) >=1000 mg/dL (NEG) Urine Ketones (Stick) Negative mg/dL (NEG) Urine Blood Negative (NEG) Urine Nitrite Negative (NEG) Urine Bilirubin Negative (NEG) Urine Urobilinogen Dipstick 0.2 mg/dL (0.2 mg/dL) Urine Leukocyte Esterase Negative (NEG) Urine RBC 0 /HPF (0-2) Urine WBC 0 /HPF (0-4) Urine Squamous Epithelial Cells Few /LPF Urine Bacteria 0 /HPF (0-FEW) Urine Opiates Screen Neg (NEG) Urine Methadone Screen Neg (NEG) Urine Barbiturates Neg (NEG) Urine Phencyclidine Screen Neg (NEG) Urine Amphetamine/Methamphetamine Neg (NEG) Urine Benzodiazepines Screen Neg (NEG) Urine Cocaine Screen Neg (NEG) Urine Cannabinoids Screen Pos (NEG) Urine Ethyl Alcohol Neg (NEG) White Blood Count 11.1 x10^3/uL (4.0-11.0) Red Blood Count 5.13 x10^6/uL (3.50-5.40) Hemoglobin 15.1 g/dL (12.0-15.5) Hematocrit 44.5 % (36.0-47.0) Mean Corpuscular Volume 87 fL (79-100) Mean Corpuscular Hemoglobin 30 pg (25-35) Mean Corpuscular Hemoglobin Concent 34 g/dL (31-37) Red Cell Distribution Width 14.1 % (11.5-14.5) Platelet Count 198 x10^3/uL (140-400) Neutrophils (%) (Auto) 74 % (31-73) Lymphocytes (%) (Auto) 17 % (24-48) Monocytes (%) (Auto) 6 % (0-9) Eosinophils (%) (Auto) 2 % (0-3) Basophils (%) (Auto) 1 % (0-3) Neutrophils # (Auto) 8.2 x10^3uL (1.8-7.7) Lymphocytes # (Auto) 1.9 x10^3/uL (1.0-4.8) Monocytes # (Auto) 0.7 x10^3/uL (0.0-1.1) Eosinophils # (Auto) 0.2 x10^3/uL (0.0-0.7) Basophils # (Auto) 0.1 x10^3/uL (0.0-0.2) Prothrombin Time 13.4 SEC (11.7-14.0) Prothromb Time International Ratio 1.1 (0.8-1.1) D-Dimer (Rebecca) 0.39 ug/mlFEU (0.00-0.50) Sodium Level 137 mmol/L (136-145) Potassium Level 4.2 mmol/L (3.5-5.1) Chloride Level 103 mmol/L (98-107) Carbon Dioxide Level 21 mmol/L (21-32) Anion Gap 13 (6-14) Blood Urea Nitrogen 13 mg/dL (7-20) Creatinine 0.8 mg/dL (0.6-1.0) Estimated GFR (Cockcroft-Gault) 75.6 Glucose Level 143 mg/dL (70-99) Calcium Level 9.7 mg/dL (8.5-10.1) Magnesium Level 2.1 mg/dL (1.8-2.4) Creatine Kinase 130 U/L (26-192) Creatine Kinase MB (Mass) 1.9 ng/mL (0.0-3.6) Creatine Kinase MB Relative Index 1.5 % (0-4) Troponin I Quantitative < 0.017 ng/mL (0.000-0.055) < 0.017 ng/mL (0.000-0.055) JD-Ttw-L-Type Natriuretic Peptide 46 pg/mL (0-124) Glucose (Fingerstick) 124 mg/dL (70-99) Test 11/04/16 21:45 11/05/16 04:30 11/05/16 07:05 Glucose (Fingerstick) 128 mg/dL (70-99) 116 mg/dL (70-99) White Blood Count 8.8 x10^3/uL (4.0-11.0) Red Blood Count 5.17 x10^6/uL (3.50-5.40) Hemoglobin 15.1 g/dL (12.0-15.5) Hematocrit 45.9 % (36.0-47.0) Mean Corpuscular Volume 89 fL (79-100) Mean Corpuscular Hemoglobin 29 pg (25-35) Mean Corpuscular Hemoglobin Concent 33 g/dL (31-37) Red Cell Distribution Width 14.0 % (11.5-14.5) Platelet Count 183 x10^3/uL (140-400) Neutrophils (%) (Auto) 57 % (31-73) Lymphocytes (%) (Auto) 30 % (24-48) Monocytes (%) (Auto) 9 % (0-9) Eosinophils (%) (Auto) 4 % (0-3) Basophils (%) (Auto) 0 % (0-3) Neutrophils # (Auto) 5.0 x10^3uL (1.8-7.7) Lymphocytes # (Auto) 2.6 x10^3/uL (1.0-4.8) Monocytes # (Auto) 0.8 x10^3/uL (0.0-1.1) Eosinophils # (Auto) 0.3 x10^3/uL (0.0-0.7) Basophils # (Auto) 0.0 x10^3/uL (0.0-0.2) Sodium Level 137 mmol/L (136-145) Potassium Level 3.9 mmol/L (3.5-5.1) Chloride Level 104 mmol/L (98-107) Carbon Dioxide Level 25 mmol/L (21-32) Anion Gap 8 (6-14) Blood Urea Nitrogen 12 mg/dL (7-20) Creatinine 0.6 mg/dL (0.6-1.0) Estimated GFR (Cockcroft-Gault) 105.4 Glucose Level 123 mg/dL (70-99) Calcium Level 9.0 mg/dL (8.5-10.1) Creatine Kinase 94 U/L (26-192) Creatine Kinase MB (Mass) 1.0 ng/mL (0.0-3.6) Creatine Kinase MB Relative Index 1.1 % (0-4) Troponin I Quantitative < 0.017 ng/mL (0.000-0.055) Triglycerides Level 147 mg/dL (0-150) Cholesterol Level 155 mg/dL (0-200) LDL Cholesterol, Calculated 87 mg/dL (0-100) VLDL Cholesterol, Calculated 29 mg/dL (0-40) Non-HDL Cholesterol Calculated 116 mg/dL (0-129) HDL Cholesterol 39 mg/dL (40-60) Cholesterol/HDL Ratio 4.0 Thyroid Stimulating Hormone (TSH) 0.831 uIU/mL (0.358-3.74) Medications Current Medications Aspirin (Charles Aspirin) 325 mg 1X ONCE PO ; Start 11/04/16 at 10:45; Stop at 10:46; Status DC Aspirin (Children'S Aspirin) 162 mg 1X ONCE PO Last administered on 11/04/16 10:38; Start 11/04/16 at 11:00; Stop 11/04/16 at 11:01; Status DC Aspirin (Ecotrin) 81 mg DAILY PO ; Start 11/05/16 at 09:00 Lisinopril (Prinivil) 40 mg DAILY PO ; Start 11/05/16 at 09:00 Lorazepam (Ativan) 1 mg PRN QHS PRN PO ANXIETY / AGITATION Last administered on 11/04/16 21:36; Start 11/04/16 at 13:15 Montelukast Sodium (Singulair) 10 mg HS PO Last administered on 11/04/16 21:27 ; Start 11/04/16 at 21:00 Naproxen (Naprosyn) 500 mg PRN DAILY PRN PO PAIN; Start 11/04/16 at 13:15 Simvastatin (Zocor) 40 mg HS PO Last administered on 11/04/16 21:28; Start 11/04 at 21:00 Albuterol Sulfate (Ventolin Neb Soln) 2.5 mg PRN QID PRN NEB SHORTNESS OF BREATH; Start 11/04/16 at 13:45 Non-Formulary Medication 100 mg DAILYWBKFT PO ; Start 11/05/16 at 08:00; Status UNV Budesonide (Pulmicort) 0.5 mg RTBID NEB Last administered on 11/05/16 08:26; Start 11/04/16 at 20:00 Insulin Detemir (Levemir) 20 units HS SQ ; Start 11/04/16 at 21:00 Pantoprazole Sodium (Protonix) 40 mg DAILYAC PO ; Start 11/05/16 at 07:30 Ondansetron HCl (Zofran Odt) 4 mg PRN BID PRN PO NAUSEA/VOMITING; Start at 13:30 Oxycodone HCl (Roxicodone) 5 mg PRN Q4HRS PRN PO PAIN; Start 11/04/16 at 13:30 Linagliptin (Tradjenta) 5 mg DAILY PO ; Start 11/05/16 at 09:00 Ondansetron HCl (Zofran) 4 mg PRN Q6HRS PRN IV NAUSEA/VOMITING; Start 11/04/16 at 13:30 Prochlorperazine Edisylate (Compazine) 10 mg PRN Q6HRS PRN IV NAUSEA/VOMITING; Start 11/04/16 at 13:30; Status Cancel Morphine Sulfate 2 mg PRN Q2HR PRN IV PAIN; Start 11/04/16 at 13:30 Ketorolac Tromethamine (Toradol) 15 mg PRN Q6HRS PRN IV PAIN; Start 11/04/16 at 13:30; Stop 11/09/16 at 13:29 Acetaminophen (Tylenol) 650 mg PRN Q6HRS PRN PO Headaches, Temp > 101.5F; Start 11/04/16 at 13:30 Docusate Sodium (Colace) 100 mg BID PO Last administered on 11/04/16 21:27; Start 11/04/16 at 21:00 Magnesium Hydroxide (Milk Of Magnesia) 2,400 mg PRN Q12HR PRN PO CONSTIPATION; Start 11/04/16 at 13:30 Lactulose 20 gm PRN Q12HR PRN PO CONSTIPATION; Start 11/04/16 at 13:30 Metformin HCl (Glucophage) 1,000 mg BIDWMEALS PO Last administered on 11/04/16 17:43; Start 11/04/16 at 17:00 Albuterol Sulfate (Ventolin Neb Soln) 2.5 mg RTQID NEB Last administered on 11/05 08:26; Start 11/04/16 at 16:00 Acetaminophen (Tylenol) 650 mg PRN Q4HRS PRN PO FEVER; Start 11/04/16 at 14:00; Stop 11/05/16 at 13:59; Status UNV Nitroglycerin (Nitrostat) 0.4 mg PRN Q5MIN PRN SL CHEST PAIN; Start 11/04/16 at 14:00; Stop 11/05/16 at 13:59 Regadenoson (Lexiscan) 0.4 mg 1X ONCE IV Last administered on 11/05/16 09:17; Start 11/05/16 at 08:00; Stop 11/05/16 at 08:05; Status DC Active Scripts Active Reported Oxycodone Hcl 5 Mg Capsule 5 Mg PO Q4HRS PRN Invokana (Canagliflozin) 100 Mg Tablet 100 Mg PO DAILYWBKFT Simvastatin 40 Mg Tablet 40 Mg PO HS Ativan (Lorazepam) 1 Mg Tablet 1 Mg PO PRN QHS PRN Ventolin Hfa Inhaler (Albuterol Sulfate) 18 Gm Hfa.aer.ad 2 Puff INH PRN QID PRN Zofran (Ondansetron Hcl) 4 Mg Tablet 4 Mg PO PRN BID PRN Janumet 50-1,000 Mg Tablet (Sitagliptin Phos/Metformin Hcl) 1 Each Tablet 1 Each PO BID Prevacid (Lansoprazole) 30 Mg Capsule.dr 30 Mg PO DAILY07 Aspir 81 (Aspirin) 81 Mg Tablet.dr 1 Tab PO DAILY Lisinopril 40 Mg Tablet 1 Tab PO DAILY Advair 250-50 Diskus (Fluticasone/Salmeterol) 1 Each Disk.w.dev 1 Puff IH BID Singulair Tablet (Montelukast Sodium) 10 Mg Tablet 10 Mg PO HS Vitals/I & O Vital Sign - Last 24 Hours 11/04/16 11/04/16 11/04/16 11/04/16 10:00 10:38 10:52 11:08 Temp 98.9 98.9 Pulse 88 70 69 68 Resp 20 15 B/P (MAP) 137/92 (107) 141/77 (98) 121/72 (88) 105/59 (74) Pulse Ox 98 96 97 97 O2 Delivery Room Air Room Air Room Air Room Air 11/04/16 11/04/16 11/04/16 11/04/16 11:38 12:08 12:38 13:00 Pulse 68 66 67 70 Resp 15 18 14 10 B/P (MAP) 115/65 (82) 114/56 (75) 116/65 (82) 132/68 (89) Pulse Ox 97 98 97 98 O2 Delivery Room Air Room Air Room Air Room Air 11/04/16 11/04/16 11/04/16 11/04/16 13:30 14:00 14:30 16:34 Temp 98.9 98.9 Pulse 63 69 69 69 Resp 16 12 13 B/P (MAP) 124/62 (82) 113/66 (82) 109/65 (80) 109/65 (80) Pulse Ox 96 96 96 96 O2 Delivery Room Air Room Air Room Air 11/04/16 11/04/16 11/04/16 11/04/16 17:01 18:35 19:00 19:36 Temp 98.6 98.6 Pulse 73 Resp 19 B/P (MAP) 131/80 (97) Pulse Ox 98 97 97 O2 Delivery Room Air Room Air Room Air Room Air 11/04/16 11/04/16 11/04/16 11/05/16 19:37 20:00 23:00 03:00 Temp 98.6 98.6 98.6 98.6 Pulse 58 76 Resp 19 19 B/P (MAP) 118/67 (84) 123/68 (86) Pulse Ox 97 98 98 O2 Delivery Room Air Room Air Room Air Room Air 11/05/16 11/05/16 11/05/16 07:00 08:28 08:30 Temp 98.4 98.4 Pulse 94 Resp 18 B/P (MAP) 115/75 (88) Pulse Ox 98 98 98 O2 Delivery Room Air Room Air Room Air Intake and Output 11/04/16 11/04/16 11/05/16 15:00 23:00 07:00 Intake Total 0 ml Balance 0 ml KYLAH DUNNE MD Nov 05, 2016 09:51
[2016-11-05 10:43] VITALS: BP 105/76
[2016-11-05] MEDS: ASPIRIN ENTERIC COATED 81 MG TABLET.DR. PO SCH (11:00)
[2016-11-05] MEDS: LINAGLIPTIN 5 MG TABLET PO SCH (11:01)
[2016-11-05] MEDS: LISINOPRIL 40 MG TABLET. PO SCH (11:01)
[2016-11-05] MEDS: PANTOPRAZOLE 40 MG TABLET.DR. PO SCH (11:01)
--- NOTE | 2016-11-05 13:13 | RAD ---
APPROVED REPORT Test Type: Pharmacological Stress Nurse/Tech: Jelena Cleaning R.N. Test Indications: Arrythmia, chest pain Cardiac History: Hypertension, Diabetes Medications: See Electronic Medical Record Medical History: See Electronic Medical Record Resting ECG: NSR with occ. PVC Resting Heart Rate: 80 bpm Resting Blood Pressure: 128/65mmHg Pretest Chest Pain: No chest pain Nurse/Tech Notes [id number], lungs sound clear Consent: The procedure was explained to the patient in lay terms. Informed consent was witnessed. Giuseppe eout was entered into [employer]. History and Stress Test performed by Jelena Cleaning R.N. Pharm. Details Pharmacologic stress testing was performed using 0.4mg per 5ml of regadenoson given intravenously ove r 7-10 seconds. Stress Symptoms Dyspnea, Nausea POST EXERCISE Reason for Termination: Infusion complete Max HR: 123 bpm Max Blood Pressure: 128/65mmHg Blood Pressure response to exercise: Normal blood pressure response during stress. Chest Pain: No. Arrhythmia: Yes. continues to have occ PVC's ST Change: No. INTERPRETATION Stress EKG Conclusion: No evidence of acute ischemic changes. Imaging Protocol IMAGE PROTOCOL: Rest Tc-99m/stress Tc-99m 1 day Rest: Stress: Viability: Radiopharm.Tc99m [id number] Sestamibi Dose12.2mCi 35mCi Duration 15min. 10min. Img Date 11/05/2016 11/05/2016 Inj-Img [id number]. 60min. Rest Admin Site:IV - Left AntecubitalAdministrator:EDWIN Latham Stress Admin Site: IV - Left AntecubitalAdministrator: DESTINEE Lynch, ARRT (R)(N) STRESS DATA End Diast. Vol.74.0mlAv. Heart Rate81.0bpm End Syst. Vol.14.0mlCO Index BSA4.8L/min Myocardial Zorh638.0gEject. Xgytecze39.0% Stress Rates Pk. Fill Rate4.48EDV/secLVtime Pk. Fill 213.18msec Pk. Empty Rate5.39ESV/secLVtime Pk. Mugqh430.36msec 1/3 Pk. Fill1.20EDV/sec Stress Scores Regional WT0.00Summed WT0.00 Regional WM0.00Summed WM0.00 The rest and stress images show normal perfusion, normal contraction and thickening. LV Perfusion 1 TCD/TID: Yes LV Perf. Quant 17 Seg. SSS0.00 17 Seg. SRS0.00 17 Seg. SDS0.00 Stress Defect Extent (% LAD)0.00Rest Defect Extent (% LAD)0.00Rev. Defect Extent (% LAD)0.00 Stress Defect Extent (% LCX) 0.00Rest Defect Extent (% LCX)0.00Rev. Defect Extent (% LCX)0.00 Stress Defect Extent (% RCA)0.00Rest Defect Extent (% RCA)0.00Rev. Defect Extent (% RCA)0.00 Stress Defect Extent (% MELLY)0.00Rest Defect Extent (% MELLY)0.00Rev. Defect Extent (% MELLY)0.00 Other Information Quality:Good Risk Assessment: Moderate Risk Conclusion 1. No evidence of stress induced EKG changes. 2. Normal perfusion at stress/ rest but there is evidence of transient ischemic dilation suggestive o f balanced ischemia/multivessel coronary disease. 3. Moderate risk study. EF > 70%
--- NOTE | 2016-11-05 13:31 | CARD ---
APPROVED REPORT EXAM: Two-dimensional and M-mode echocardiogram with Doppler and color Doppler. Other Information Quality : Average Rhythm : NSR INDICATION Palpitations Dizziness and Vertigo Chest Pain 2D DIMENSIONS RVDd2.9 (2.9-3.5cm)Left Atrium(2D)3.6 (1.6-4.0cm) IVSd1.2 (0.7-1.1cm)Aortic Root(2D)2.5 (2.0-3.7cm) LVDd4.2 (3.9-5.9cm)LVOT Diameter2.0 (1.8-2.4cm) PWd1.2 (0.7-1.1cm)LVDs2.9 (2.5-4.0cm) FS (%) 32.3 %SV48.2 ml LVEF(%)61.0 (>50%) Aortic Valve AoV Peak Buster.162.6cm/sAoV VTI26.7cm AO Peak GR.10.6mmHgLVOT Peak Buster.103.3cm/s LVOT VTI 17.47cmAO Mean GR.6mmHg RUSSELL (VMAX)1.65lo6ENS (VTI)2.05cm2 Mitral Valve MV E Kdcsubhr80.0cm/sMV DECEL [id number] MV A Zjlehznu32.2cm/sMV KBL96am E/A Ratio0.9MV A Cppjeeil434an MVA (PHT)3.16cm2 TDI E/Lateral E'5.8E/Medial E'6.8 Pulmonary Valve PV Peak Tlfoyphv061.6cm/sPV Peak Grad.7mmHg Tricuspid Valve TR P. Unyegcjf661sk/sRAP [id number] TR Peak Gr.55kuCgRHDZ16ipTx Pulmonary Vein S1 Iablneoa88.9cm/sD2 Cuaycsam92.7cm/s LEFT VENTRICLE The left ventricle is normal size. There is borderline concentric left ventricular hypertrophy. Left ventricle systolic function is normal. The Ejection Fraction is 60-65%. There is grossly normal LV se gmental wall motion. The left ventricular diastolic function and filling is normal for age. There is no ventricular septal defect visualized. RIGHT VENTRICLE The right ventricle is normal size. The right ventricular systolic function is normal. ATRIA The left atrium size is normal. The right atrium size is normal. The interatrial septum is intact wit h no evidence for an atrial septal defect or patent foramen ovale as noted on 2-D or Doppler imaging. AORTIC VALVE The aortic valve is grossly normal in structure and function. The aortic valve is trileaflet on limit ed images. Doppler and Color Flow revealed no significant aortic regurgitation. There is no significa nt aortic valvular stenosis. MITRAL VALVE The mitral valve is normal in structure and function. There is no mitral valve stenosis. Doppler and Color Flow revealed no mitral valve regurgitation noted. TRICUSPID VALVE The tricuspid valve is normal in structure. Doppler and Color Flow revealed trace to mild tricuspid r egurgitation. The PA pressure was estimated at 30 mmHg. There is no tricuspid valve stenosis. PULMONIC VALVE The pulmonic valve is not well visualized. Doppler and Color Flow revealed no pulmonic valvular regur gitation. There is no pulmonic valvular stenosis. GREAT VESSELS The aortic root is normal in size. The ascending aorta is normal in size. Normal pulmonary venous sophia w (Doppler). The IVC is normal in size and collapses >50% with inspiration. PERICARDIAL EFFUSION There is no evidence of significant pericardial effusion. Critical Notification Critical Value: No <Conclusion> Left ventricle systolic function is normal. The Ejection Fraction is 60-65%. There is grossly normal LV segmental wall motion. Technically difficult study
[2016-11-05 15:00] VITALS: BP 144/80
--- NOTE | 2016-11-05 16:26 | PDOC ---
CARDIO Progress Notes Date and Time Date of Service 11/05/16 Time of Evaluation 1315 Subjective Subjective: No Chest Pain, No shortness of breath, Other (having "fluttering" in chest occasionally) Vitals Vitals Vital Signs Date Time Temp Pulse Resp B/P (MAP) Pulse Ox O2 Delivery O2 Flow Rate FiO2 11/05/16 16:05 Room Air 11/05/16 15:00 98.1 87 18 144/80 (101) 94 98.1 Weight Weight [ ] Input and Output Intake and Output Intake and Output 11/05/16 07:00 Intake Total 0 ml Balance 0 ml Intake Oral 0 ml # Voids 4 Laboratory Labs Laboratory Tests Test 11/04/16 17:45 11/04/16 21:45 11/05/16 04:30 11/05/16 07:05 Troponin I Quantitative < 0.017 ng/mL (0.000-0.055) < 0.017 ng/mL (0.000-0.055) Glucose (Fingerstick) 128 mg/dL (70-99) 116 mg/dL (70-99) White Blood Count 8.8 x10^3/uL (4.0-11.0) Red Blood Count 5.17 x10^6/uL (3.50-5.40) Hemoglobin 15.1 g/dL (12.0-15.5) Hematocrit 45.9 % (36.0-47.0) Mean Corpuscular Volume 89 fL (79-100) Mean Corpuscular Hemoglobin 29 pg (25-35) Mean Corpuscular Hemoglobin Concent 33 g/dL (31-37) Red Cell Distribution Width 14.0 % (11.5-14.5) Platelet Count 183 x10^3/uL (140-400) Neutrophils (%) (Auto) 57 % (31-73) Lymphocytes (%) (Auto) 30 % (24-48) Monocytes (%) (Auto) 9 % (0-9) Eosinophils (%) (Auto) 4 % (0-3) Basophils (%) (Auto) 0 % (0-3) Neutrophils # (Auto) 5.0 x10^3uL (1.8-7.7) Lymphocytes # (Auto) 2.6 x10^3/uL (1.0-4.8) Monocytes # (Auto) 0.8 x10^3/uL (0.0-1.1) Eosinophils # (Auto) 0.3 x10^3/uL (0.0-0.7) Basophils # (Auto) 0.0 x10^3/uL (0.0-0.2) Sodium Level 137 mmol/L (136-145) Potassium Level 3.9 mmol/L (3.5-5.1) Chloride Level 104 mmol/L (98-107) Carbon Dioxide Level 25 mmol/L (21-32) Anion Gap 8 (6-14) Blood Urea Nitrogen 12 mg/dL (7-20) Creatinine 0.6 mg/dL (0.6-1.0) Estimated GFR (Cockcroft-Gault) 105.4 Glucose Level 123 mg/dL (70-99) Calcium Level 9.0 mg/dL (8.5-10.1) Creatine Kinase 94 U/L (26-192) Creatine Kinase MB (Mass) 1.0 ng/mL (0.0-3.6) Creatine Kinase MB Relative Index 1.1 % (0-4) Triglycerides Level 147 mg/dL (0-150) Cholesterol Level 155 mg/dL (0-200) LDL Cholesterol, Calculated 87 mg/dL (0-100) VLDL Cholesterol, Calculated 29 mg/dL (0-40) Non-HDL Cholesterol Calculated 116 mg/dL (0-129) HDL Cholesterol 39 mg/dL (40-60) Cholesterol/HDL Ratio 4.0 Thyroid Stimulating Hormone (TSH) 0.831 uIU/mL (0.358-3.74) Test 11/05/16 10:41 Glucose (Fingerstick) 279 mg/dL (70-99) Physical Exam HEENT: Neck Supple W Full Motion Chest: Symmetric LUNGS: Clear to Auscultation Heart: S1S2, RRR, other (tele SR. No significant ectopy noted) Abdomen: Soft N/T Extremities: No Edema, No Calf Tenderness Neurology: alert, oriented, follow commands Assessment Assessment 1. Chest pain, atypical; troponin series normal, AMI ruled out. EKG without significant acute changes. Echo with normal LV function, no WMA present. MPI pending 2. Dizziness/palpitations; Mg, TSH WNL. No acute events noted on telemetry. Will plan for outpatient event monitor to r/o significant arrhythmias. thus far 3. Hypertension; controlled. continue current therapy. 4. Hyperlipidemia; on statin 5. Diabetes; per PCP 6. PCOS SAMANTHA PATEL APRN Nov 05, 2016 16:26
[2016-11-05 19:00] VITALS: BP 130/77
[2016-11-05] MEDS: INSULIN DETEMIR 300 UNITS/3 ML INSULN.PEN. SQ SCH (21:00)
[2016-11-05] MEDS: LORazepam 1 MG TABLET PO PRN (21:20)
[2016-11-05] MEDS: SIMVASTATIN 40 MG TABLET. PO SCH (21:20)
[2016-11-05] MEDS: MONTELUKAST SODIUM 10 MG TABLET. PO SCH (21:20)
[2016-11-05 23:00] VITALS: BP 120/80
[2016-11-06 03:25] VITALS: BP 116/70
[2016-11-06 07:00] VITALS: BP 109/85
[2016-11-06] MEDS: ALBUTEROL SULFATE 2.5 MG/3 ML NEBU. NEB SCH ×3 (07:11→14:57)
[2016-11-06] MEDS: BUDESONIDE 0.5 MG/2 ML NEBU. NEB SCH (07:11)
[2016-11-06] MEDS: NON FORMULARY ITEM (Canagliflozin (Invokana) 100 MG) PO SCH (08:00)
[2016-11-06] MEDS: DOCUSATE SODIUM 100 MG CAPSULE. PO SCH (09:11)
[2016-11-06] MEDS: LINAGLIPTIN 5 MG TABLET PO SCH (09:11)
[2016-11-06] MEDS: LISINOPRIL 40 MG TABLET. PO SCH (09:11)
[2016-11-06] MEDS: PANTOPRAZOLE 40 MG TABLET.DR. PO SCH (09:11)
[2016-11-06] MEDS: ASPIRIN ENTERIC COATED 81 MG TABLET.DR. PO SCH (09:11)
--- NOTE | 2016-11-06 10:36 | PDOC ---
PROGRESS NOTES Chief Complaint Chief Complaint 1. Atypical CP in an adult at rest 2. HTN, controlled 3. DM2 with relatively good control, hgba1c 7 4. Dyslipidemia on statin 5. Obesity, BMI 33 6. NOrmal MPI 7. SPells, brief LOC episodes? 8. PAlpittaions History of Present Illness History of Present Illness MPI is normal moderate risk study CLeared from cards BUt pt hands me a paper of list of her sxs, including fainting spells, palpitations, "doesnt know what she's doing" or lapses of memory, flushing sxs - SHe is 51, could be menopausal, anxiety? Or rarely pheaochrtomocytoma, BUt BP not high. TSH normal Can ff up with Dr Madden as OPI can order VMAs but this is a 24 hr urine collection [facility]- they will arrange for OP event monitor I will consult neuro for the above prior to dc today Sarath RN PE: WNL SIgnif time in room, counselling, explaining difftls Vitals Vitals Vital Signs Date Time Temp Pulse Resp B/P (MAP) Pulse Ox O2 Delivery O2 Flow Rate FiO2 11/06/16 09:11 84 109/85 11/06/16 07:13 99 Room Air 11/06/16 07:00 98.5 18 98.5 Physical Exam General: Alert, Oriented X3, Cooperative, No acute distress Heart: Regular rate, Normal S1, Normal S2, Other (soft systolic murmur. tele SR ) Abdomen: Soft, No tenderness, Other (truncal obesity ) Extremities: No clubbing Skin: No significant lesion Labs LABS Laboratory Tests Test 11/05/16 10:41 11/05/16 16:23 11/05/16 21:49 11/06/16 06:56 Glucose (Fingerstick) 279 mg/dL (70-99) 87 mg/dL (70-99) 114 mg/dL (70-99) 126 mg/dL (70-99) Review of Systems Review of Systems as above Assessment and Plan Assessmemt and Plan Problems Medical Problems: (1) Chest pain Status: Acute Problems: Comment Review of Relevant I have reviewed the following items rome (where applicable) has been applied. Labs Laboratory Tests Test 11/04/16 15:50 11/04/16 17:45 11/04/16 21:45 11/05/16 04:30 Glucose (Fingerstick) 124 mg/dL (70-99) 128 mg/dL (70-99) Troponin I Quantitative < 0.017 ng/mL (0.000-0.055) < 0.017 ng/mL (0.000-0.055) White Blood Count 8.8 x10^3/uL (4.0-11.0) Red Blood Count 5.17 x10^6/uL (3.50-5.40) Hemoglobin 15.1 g/dL (12.0-15.5) Hematocrit 45.9 % (36.0-47.0) Mean Corpuscular Volume 89 fL (79-100) Mean Corpuscular Hemoglobin 29 pg (25-35) Mean Corpuscular Hemoglobin Concent 33 g/dL (31-37) Red Cell Distribution Width 14.0 % (11.5-14.5) Platelet Count 183 x10^3/uL (140-400) Neutrophils (%) (Auto) 57 % (31-73) Lymphocytes (%) (Auto) 30 % (24-48) Monocytes (%) (Auto) 9 % (0-9) Eosinophils (%) (Auto) 4 % (0-3) Basophils (%) (Auto) 0 % (0-3) Neutrophils # (Auto) 5.0 x10^3uL (1.8-7.7) Lymphocytes # (Auto) 2.6 x10^3/uL (1.0-4.8) Monocytes # (Auto) 0.8 x10^3/uL (0.0-1.1) Eosinophils # (Auto) 0.3 x10^3/uL (0.0-0.7) Basophils # (Auto) 0.0 x10^3/uL (0.0-0.2) Sodium Level 137 mmol/L (136-145) Potassium Level 3.9 mmol/L (3.5-5.1) Chloride Level 104 mmol/L (98-107) Carbon Dioxide Level 25 mmol/L (21-32) Anion Gap 8 (6-14) Blood Urea Nitrogen 12 mg/dL (7-20) Creatinine 0.6 mg/dL (0.6-1.0) Estimated GFR (Cockcroft-Gault) 105.4 Glucose Level 123 mg/dL (70-99) Calcium Level 9.0 mg/dL (8.5-10.1) Creatine Kinase 94 U/L (26-192) Creatine Kinase MB (Mass) 1.0 ng/mL (0.0-3.6) Creatine Kinase MB Relative Index 1.1 % (0-4) Triglycerides Level 147 mg/dL (0-150) Cholesterol Level 155 mg/dL (0-200) LDL Cholesterol, Calculated 87 mg/dL (0-100) VLDL Cholesterol, Calculated 29 mg/dL (0-40) Non-HDL Cholesterol Calculated 116 mg/dL (0-129) HDL Cholesterol 39 mg/dL (40-60) Cholesterol/HDL Ratio 4.0 Thyroid Stimulating Hormone (TSH) 0.831 uIU/mL (0.358-3.74) Test 11/05/16 07:05 11/05/16 10:41 11/05/16 16:23 11/05/16 21:49 Glucose (Fingerstick) 116 mg/dL (70-99) 279 mg/dL (70-99) 87 mg/dL (70-99) 114 mg/dL (70-99) Test 11/06/16 06:56 Glucose (Fingerstick) 126 mg/dL (70-99) Laboratory Tests Test 11/05/16 10:41 11/05/16 16:23 11/05/16 21:49 11/06/16 06:56 Glucose (Fingerstick) 279 mg/dL (70-99) 87 mg/dL (70-99) 114 mg/dL (70-99) 126 mg/dL (70-99) Medications Current Medications Aspirin (Charles Aspirin) 325 mg 1X ONCE PO ; Start 11/04/16 at 10:45; Stop at 10:46; Status DC Aspirin (Children'S Aspirin) 162 mg 1X ONCE PO Last administered on 11/04/16 10:38; Start 11/04/16 at 11:00; Stop 11/04/16 at 11:01; Status DC Aspirin (Ecotrin) 81 mg DAILY PO Last administered on 11/06/16 09:11; Start 11/05/16 at 09:00 Lisinopril (Prinivil) 40 mg DAILY PO Last administered on 11/06/16 09:11; Start 11/05/16 at 09:00 Lorazepam (Ativan) 1 mg PRN QHS PRN PO ANXIETY / AGITATION Last administered on 11/05/16 21:20; Start 11/04/16 at 13:15 Montelukast Sodium (Singulair) 10 mg HS PO Last administered on 11/05/16 21:20 ; Start 11/04/16 at 21:00 Naproxen (Naprosyn) 500 mg PRN DAILY PRN PO PAIN; Start 11/04/16 at 13:15 Simvastatin (Zocor) 40 mg HS PO Last administered on 11/05/16 21:20; Start 11/04 at 21:00 Albuterol Sulfate (Ventolin Neb Soln) 2.5 mg PRN QID PRN NEB SHORTNESS OF BREATH; Start 11/04/16 at 13:45 Non-Formulary Medication 100 mg DAILYWBKFT PO ; Start 11/05/16 at 08:00; Status UNV Budesonide (Pulmicort) 0.5 mg RTBID NEB Last administered on 11/06/16 07:11; Start 11/04/16 at 20:00 Insulin Detemir (Levemir) 20 units HS SQ ; Start 11/04/16 at 21:00 Pantoprazole Sodium (Protonix) 40 mg DAILYAC PO Last administered on 11/06/16 09:11; Start 11/05/16 at 07:30 Ondansetron HCl (Zofran Odt) 4 mg PRN BID PRN PO NAUSEA/VOMITING; Start at 13:30 Oxycodone HCl (Roxicodone) 5 mg PRN Q4HRS PRN PO PAIN; Start 11/04/16 at 13:30 Linagliptin (Tradjenta) 5 mg DAILY PO Last administered on 11/06/16 09:11; Start 11/05/16 at 09:00 Ondansetron HCl (Zofran) 4 mg PRN Q6HRS PRN IV NAUSEA/VOMITING; Start 11/04/16 at 13:30 Prochlorperazine Edisylate (Compazine) 10 mg PRN Q6HRS PRN IV NAUSEA/VOMITING; Start 11/04/16 at 13:30; Status Cancel Morphine Sulfate 2 mg PRN Q2HR PRN IV PAIN; Start 11/04/16 at 13:30 Ketorolac Tromethamine (Toradol) 15 mg PRN Q6HRS PRN IV PAIN; Start 11/04/16 at 13:30; Stop 11/09/16 at 13:29 Acetaminophen (Tylenol) 650 mg PRN Q6HRS PRN PO Headaches, Temp > 101.5F; Start 11/04/16 at 13:30 Docusate Sodium (Colace) 100 mg BID PO Last administered on 11/06/16 09:11; Start 11/04/16 at 21:00 Magnesium Hydroxide (Milk Of Magnesia) 2,400 mg PRN Q12HR PRN PO CONSTIPATION; Start 11/04/16 at 13:30 Lactulose 20 gm PRN Q12HR PRN PO CONSTIPATION; Start 11/04/16 at 13:30 Metformin HCl (Glucophage) 1,000 mg BIDWMEALS PO Last administered on 11/06/16 09:11; Start 11/04/16 at 17:00 Albuterol Sulfate (Ventolin Neb Soln) 2.5 mg RTQID NEB Last administered on 11/06 07:11; Start 11/04/16 at 16:00 Acetaminophen (Tylenol) 650 mg PRN Q4HRS PRN PO FEVER; Start 11/04/16 at 14:00; Stop 11/05/16 at 13:59; Status UNV Nitroglycerin (Nitrostat) 0.4 mg PRN Q5MIN PRN SL CHEST PAIN; Start 11/04/16 at 14:00; Stop 11/05/16 at 13:59; Status DC Regadenoson (Lexiscan) 0.4 mg 1X ONCE IV Last administered on 11/05/16 09:17; Start 11/05/16 at 08:00; Stop 11/05/16 at 08:05; Status DC Active Scripts Active Reported Oxycodone Hcl 5 Mg Capsule 5 Mg PO Q4HRS PRN Invokana (Canagliflozin) 100 Mg Tablet 100 Mg PO DAILYWBKFT Simvastatin 40 Mg Tablet 40 Mg PO HS Ativan (Lorazepam) 1 Mg Tablet 1 Mg PO PRN QHS PRN Ventolin Hfa Inhaler (Albuterol Sulfate) 18 Gm Hfa.aer.ad 2 Puff INH PRN QID PRN Zofran (Ondansetron Hcl) 4 Mg Tablet 4 Mg PO PRN BID PRN Janumet 50-1,000 Mg Tablet (Sitagliptin Phos/Metformin Hcl) 1 Each Tablet 1 Each PO BID Prevacid (Lansoprazole) 30 Mg Capsule.dr 30 Mg PO DAILY07 Aspir 81 (Aspirin) 81 Mg Tablet.dr 1 Tab PO DAILY Lisinopril 40 Mg Tablet 1 Tab PO DAILY Advair 250-50 Diskus (Fluticasone/Salmeterol) 1 Each Disk.w.dev 1 Puff IH BID Singulair Tablet (Montelukast Sodium) 10 Mg Tablet 10 Mg PO HS Vitals/I & O Vital Sign - Last 24 Hours 11/05/16 11/05/16 11/05/16 11/05/16 10:43 11:01 11:52 15:00 Temp 98.2 98.1 98.2 98.1 Pulse 92 92 87 Resp 18 18 B/P (MAP) 105/76 (86) 105/76 144/80 (101) Pulse Ox 97 94 O2 Delivery Room Air Room Air Room Air 11/05/16 11/05/16 11/05/16 11/05/16 16:05 19:00 19:31 19:39 Temp 98.7 98.7 Pulse 69 Resp 18 B/P (MAP) 130/77 (94) Pulse Ox 96 O2 Delivery Room Air Room Air Room Air 11/05/16 11/06/16 11/06/16 11/06/16 23:00 03:25 07:00 07:13 Temp 98.5 97.9 98.5 98.5 97.9 98.5 Pulse 86 79 84 Resp 18 16 18 B/P (MAP) 120/80 (93) 116/70 (85) 109/85 (93) Pulse Ox 96 98 98 99 O2 Delivery Room Air Room Air Room Air Room Air 11/06/16 09:11 Pulse 84 B/P (MAP) 109/85 Intake and Output 11/05/16 11/05/16 11/06/16 15:00 23:00 07:00 Intake Total 1500 ml 1000 ml 1260 ml Balance 1500 ml 1000 ml 1260 ml KYLAH DUNNE MD Nov 06, 2016 10:36
[2016-11-06 10:50] VITALS: BP 125/82
--- NOTE | 2016-11-06 10:50 | PDOC ---
CARDIO Progress Notes Date and Time Date of Service 11/06/16 Time of Evaluation 1015 Subjective Subjective: No Chest Pain, No shortness of breath, Other (resting comfortably. Still having occasional fluttering in chest and flush sensation) Vitals Vitals Vital Signs Date Time Temp Pulse Resp B/P (MAP) Pulse Ox O2 Delivery O2 Flow Rate FiO2 11/06/16 09:11 84 109/85 11/06/16 07:13 99 Room Air 11/06/16 07:00 98.5 18 98.5 Weight Weight [ ] Input and Output Intake and Output Intake and Output 11/06/16 07:00 Intake Total 3760 ml Balance 3760 ml Intake Oral 3760 ml # Voids 10 Laboratory Labs Laboratory Tests Test 11/05/16 16:23 11/05/16 21:49 11/06/16 06:56 Glucose (Fingerstick) 87 mg/dL (70-99) 114 mg/dL (70-99) 126 mg/dL (70-99) Physical Exam HEENT: Neck Supple W Full Motion Chest: Symmetric LUNGS: Clear to Auscultation Heart: S1S2, RRR, other (tele SR. No significant ectopy noted) Abdomen: Soft N/T Extremities: No Edema, No Calf Tenderness Neurology: alert, oriented, follow commands Assessment Assessment 1. Chest pain, atypical; troponin series normal, AMI ruled out. EKG without significant acute changes. Echo with normal LV function, no WMA present. MPI with normal perfusion. Will followup an an outpatient basis. 2. Dizziness/palpitations; Mg, TSH WNL. No acute events noted on telemetry. Outpatient event monitor to r/o significant arrhythmias. 3. Hypertension; controlled. continue current therapy. 4. Hyperlipidemia; on statin 5. Diabetes; per PCP 6. PCOS SAMANTHA PATEL APRN Nov 06, 2016 10:50
[2016-11-06] MEDS ORDERED: ESCITALOPRAM OX10 MG PO (12:00)
--- NOTE | 2016-11-06 13:04 | PDOC2 ---
NEUROLOGY CONSULT Date of Admission Date of Admission DATE: 11/06/16 TIME: 12:53 Reason for Consult Reason for Consult: Episodes of memory loss. Referring Physician Referring Physician: Dr. Son PCP: Dr. Oscar Source Source: Chart review, Patient History of Present Illness History of Present Illness The patient is a 51-year-old right-handed female admitted with chest pain found to have noncardiac source. Workup included echocardiogram and MPI testing, both negative. She describes several years of episodes of flushing, altered consciousness, memory loss, sweating, headache, but without convulsive activity or focal findings such as numbness or weakness. She just feels weak all over. She does have a history of migraine headaches but no history of stroke or seizure. 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 I do see that she had a CT scan of the head that was negative. She also describes undergoing an EEG, but I cannot find that report. She says that when she goes to work sometimes she forgets how she got home although she gets home without any incidents.I saw her in 2013 for an EMG showing a left carpal tunnel syndrome. Past Medical History Cardiovascular: HTN, Hyperlipidemia Pulmonary: Asthma CENTRAL NERVOUS SYSTEM: Other ( carpal tunnel syndrome) Hepatobiliary: Other ( biliary dyskinesia) Psych: Anxiety, Depression Endocrine: Diabetes Past Surgical History Past Surgical History: Tonsillectomy (/Adenoidectomy), Other ( endometrial ablation, right ovarian cystectomy) Family History Family History: Cancer Social History Social History , smokes a pack per day, no alcohol Current Medications Current Medications Current Medications Aspirin (Charles Aspirin) 325 mg 1X ONCE PO ; Start 11/04/16 at 10:45; Stop at 10:46; Status DC Aspirin (Children'S Aspirin) 162 mg 1X ONCE PO Last administered on 11/04/16 10:38; Start 11/04/16 at 11:00; Stop 11/04/16 at 11:01; Status DC Aspirin (Ecotrin) 81 mg DAILY PO Last administered on 11/06/16 09:11; Start 11/05/16 at 09:00 Lisinopril (Prinivil) 40 mg DAILY PO Last administered on 11/06/16 09:11; Start 11/05/16 at 09:00 Lorazepam (Ativan) 1 mg PRN QHS PRN PO ANXIETY / AGITATION Last administered on 11/05/16 21:20; Start 11/04/16 at 13:15 Montelukast Sodium (Singulair) 10 mg HS PO Last administered on 11/05/16 21:20 ; Start 11/04/16 at 21:00 Naproxen (Naprosyn) 500 mg PRN DAILY PRN PO PAIN; Start 11/04/16 at 13:15 Simvastatin (Zocor) 40 mg HS PO Last administered on 11/05/16 21:20; Start 11/04 at 21:00 Albuterol Sulfate (Ventolin Neb Soln) 2.5 mg PRN QID PRN NEB SHORTNESS OF BREATH; Start 11/04/16 at 13:45 Non-Formulary Medication 100 mg DAILYWBKFT PO ; Start 11/05/16 at 08:00; Status UNV Budesonide (Pulmicort) 0.5 mg RTBID NEB Last administered on 11/06/16 07:11; Start 11/04/16 at 20:00 Insulin Detemir (Levemir) 20 units HS SQ ; Start 11/04/16 at 21:00 Pantoprazole Sodium (Protonix) 40 mg DAILYAC PO Last administered on 11/06/16 09:11; Start 11/05/16 at 07:30 Ondansetron HCl (Zofran Odt) 4 mg PRN BID PRN PO NAUSEA/VOMITING; Start at 13:30 Oxycodone HCl (Roxicodone) 5 mg PRN Q4HRS PRN PO PAIN; Start 11/04/16 at 13:30 Linagliptin (Tradjenta) 5 mg DAILY PO Last administered on 11/06/16 09:11; Start 11/05/16 at 09:00 Ondansetron HCl (Zofran) 4 mg PRN Q6HRS PRN IV NAUSEA/VOMITING; Start 11/04/16 at 13:30 Prochlorperazine Edisylate (Compazine) 10 mg PRN Q6HRS PRN IV NAUSEA/VOMITING; Start 11/04/16 at 13:30; Status Cancel Morphine Sulfate 2 mg PRN Q2HR PRN IV PAIN; Start 11/04/16 at 13:30 Ketorolac Tromethamine (Toradol) 15 mg PRN Q6HRS PRN IV PAIN; Start 11/04/16 at 13:30; Stop 11/09/16 at 13:29 Acetaminophen (Tylenol) 650 mg PRN Q6HRS PRN PO Headaches, Temp > 101.5F; Start 11/04/16 at 13:30 Docusate Sodium (Colace) 100 mg BID PO Last administered on 11/06/16 09:11; Start 11/04/16 at 21:00 Magnesium Hydroxide (Milk Of Magnesia) 2,400 mg PRN Q12HR PRN PO CONSTIPATION; Start 11/04/16 at 13:30 Lactulose 20 gm PRN Q12HR PRN PO CONSTIPATION; Start 11/04/16 at 13:30 Metformin HCl (Glucophage) 1,000 mg BIDWMEALS PO Last administered on 11/06/16 09:11; Start 11/04/16 at 17:00 Albuterol Sulfate (Ventolin Neb Soln) 2.5 mg RTQID NEB Last administered on 11/06 10:50; Start 11/04/16 at 16:00 Acetaminophen (Tylenol) 650 mg PRN Q4HRS PRN PO FEVER; Start 11/04/16 at 14:00; Stop 11/05/16 at 13:59; Status UNV Nitroglycerin (Nitrostat) 0.4 mg PRN Q5MIN PRN SL CHEST PAIN; Start 11/04/16 at 14:00; Stop 11/05/16 at 13:59; Status DC Regadenoson (Lexiscan) 0.4 mg 1X ONCE IV Last administered on 11/05/16 09:17; Start 11/05/16 at 08:00; Stop 11/05/16 at 08:05; Status DC Escitalopram Oxalate (Lexapro) 10 mg DAILY PO ; Start 11/07/16 at 09:00; Status UNV Active Scripts Active Reported Oxycodone Hcl 5 Mg Capsule 5 Mg PO Q4HRS PRN Invokana (Canagliflozin) 100 Mg Tablet 100 Mg PO DAILYWBKFT Simvastatin 40 Mg Tablet 40 Mg PO HS Ativan (Lorazepam) 1 Mg Tablet 1 Mg PO PRN QHS PRN Ventolin Hfa Inhaler (Albuterol Sulfate) 18 Gm Hfa.aer.ad 2 Puff INH PRN QID PRN Zofran (Ondansetron Hcl) 4 Mg Tablet 4 Mg PO PRN BID PRN Janumet 50-1,000 Mg Tablet (Sitagliptin Phos/Metformin Hcl) 1 Each Tablet 1 Each PO BID Prevacid (Lansoprazole) 30 Mg Capsule.dr 30 Mg PO DAILY07 Aspir 81 (Aspirin) 81 Mg Tablet.dr 1 Tab PO DAILY Lisinopril 40 Mg Tablet 1 Tab PO DAILY Advair 250-50 Diskus (Fluticasone/Salmeterol) 1 Each Disk.w.dev 1 Puff IH BID Singulair Tablet (Montelukast Sodium) 10 Mg Tablet 10 Mg PO HS Allergies Allergies: Coded Allergies: Penicillins (Verified Allergy, Intermediate, rash, 08/04/14) Sulfa (Sulfonamide Antibiotics) (Verified Allergy, Intermediate, rash, 08/04) exenatide (Verified Allergy, Intermediate, N/V, 08/04/14) prochlorperazine (Unverified Allergy, Intermediate, muscle rigidity, ) ROS Review of System Negative for fevers, chills, weight loss, shortness of breath, chest pain, indigestion, hematochezia, melena, dysuria. Full 14-point review systems is negative. Physical Exam Physical Examination PHYSICAL EXAMINATION: Vital signs: see above. General appearance is normal and in no acute distress. HEENT: Normocephalic and nontraumatic. Eyes, nose, ears, and throat are unremarkable. Neck is supple. No lymphadenopathy. No bruits are heard over the carotid artery. No crepitus. NEUROLOGICAL EXAMINATION: Mental Status Examination: Alert. Oriented to time, place, and person. Answers questions and follows commends. Pupils are equal round and reactive to light and accommodation. Funduscopic exam: No papilledema. Extraocular movements are intact. Visual field exam shows no defect on the direct confrontation. No motor or sensory deficits on the facial exam. Uvula in the midline and the soft palate elevated symmetrically. No deviation of the tongue to any direction. Gross hearing is normal. Shoulder shrug normal. Muscle tone is normal. Muscle strength is 5. Deep tendon reflexes are 2+ all around. Plantar reflex is with flexion response bilaterally. Lixlie-qj-wlyh test performance is accurate. Tandem walk test is accurate. Alternative movements are accurate. Romberg test is negative. Gait is normal. Sensory exam shows no deficits. No cerebellar signs are elicited. Vitals VITALS Vital Signs Date Time Temp Pulse Resp B/P (MAP) Pulse Ox O2 Delivery O2 Flow Rate FiO2 11/06/16 10:50 Room Air 11/06/16 10:50 98.3 72 18 125/82 (96) 98 98.3 Labs Labs Laboratory Tests Test 11/04/16 15:50 11/04/16 17:45 11/04/16 21:45 11/05/16 04:30 Glucose (Fingerstick) 124 mg/dL (70-99) 128 mg/dL (70-99) Troponin I Quantitative < 0.017 ng/mL (0.000-0.055) < 0.017 ng/mL (0.000-0.055) White Blood Count 8.8 x10^3/uL (4.0-11.0) Red Blood Count 5.17 x10^6/uL (3.50-5.40) Hemoglobin 15.1 g/dL (12.0-15.5) Hematocrit 45.9 % (36.0-47.0) Mean Corpuscular Volume 89 fL (79-100) Mean Corpuscular Hemoglobin 29 pg (25-35) Mean Corpuscular Hemoglobin Concent 33 g/dL (31-37) Red Cell Distribution Width 14.0 % (11.5-14.5) Platelet Count 183 x10^3/uL (140-400) Neutrophils (%) (Auto) 57 % (31-73) Lymphocytes (%) (Auto) 30 % (24-48) Monocytes (%) (Auto) 9 % (0-9) Eosinophils (%) (Auto) 4 % (0-3) Basophils (%) (Auto) 0 % (0-3) Neutrophils # (Auto) 5.0 x10^3uL (1.8-7.7) Lymphocytes # (Auto) 2.6 x10^3/uL (1.0-4.8) Monocytes # (Auto) 0.8 x10^3/uL (0.0-1.1) Eosinophils # (Auto) 0.3 x10^3/uL (0.0-0.7) Basophils # (Auto) 0.0 x10^3/uL (0.0-0.2) Sodium Level 137 mmol/L (136-145) Potassium Level 3.9 mmol/L (3.5-5.1) Chloride Level 104 mmol/L (98-107) Carbon Dioxide Level 25 mmol/L (21-32) Anion Gap 8 (6-14) Blood Urea Nitrogen 12 mg/dL (7-20) Creatinine 0.6 mg/dL (0.6-1.0) Estimated GFR (Cockcroft-Gault) 105.4 Glucose Level 123 mg/dL (70-99) Calcium Level 9.0 mg/dL (8.5-10.1) Creatine Kinase 94 U/L (26-192) Creatine Kinase MB (Mass) 1.0 ng/mL (0.0-3.6) Creatine Kinase MB Relative Index 1.1 % (0-4) Triglycerides Level 147 mg/dL (0-150) Cholesterol Level 155 mg/dL (0-200) LDL Cholesterol, Calculated 87 mg/dL (0-100) VLDL Cholesterol, Calculated 29 mg/dL (0-40) Non-HDL Cholesterol Calculated 116 mg/dL (0-129) HDL Cholesterol 39 mg/dL (40-60) Cholesterol/HDL Ratio 4.0 Thyroid Stimulating Hormone (TSH) 0.831 uIU/mL (0.358-3.74) Test 11/05/16 07:05 11/05/16 10:41 11/05/16 16:23 11/05/16 21:49 Glucose (Fingerstick) 116 mg/dL (70-99) 279 mg/dL (70-99) 87 mg/dL (70-99) 114 mg/dL (70-99) Test 11/06/16 06:56 11/06/16 10:42 Glucose (Fingerstick) 126 mg/dL (70-99) 163 mg/dL (70-99) Laboratory Tests Test 11/05/16 16:23 11/05/16 21:49 11/06/16 06:56 11/06/16 10:42 Glucose (Fingerstick) 87 mg/dL (70-99) 114 mg/dL (70-99) 126 mg/dL (70-99) 163 mg/dL (70-99) Assessment/Plan Assessment/Plan Impression: Episodes of headaches, flushing, diaphoresis, altered consciousness, dizziness, memory loss. Usually these turned out to be nonorganic, but that could be related to migraines, consider carcinoid or other neuroendocrine disease. Transient ischemic attack, seizure, cerebrovascular disease are all highly unlikely given the prolonged nature of episodes with non-focal features. Recommendations: As both a test and a treatment I would like to try escitalopram. She has taken sertraline in the past. Escitalopram will serve to be a migraine preventative. I discussed the side effects. Outpatient 24-hour urine study for 5 HIAA, catecholamines, metanephrines. Consider MRI of the brain. Thank you for letting me help with the patient's care. ERICKSON BRIZUELA MD Nov 06, 2016 13:04
[2016-11-06 14:38] VITALS: BP 130/85
[2016-11-06] MEDS ORDERED: ESCITALOPRAM 5 MG TABLET. PO SCH (15:00)
== END 2016-11-06 18:12 | disposition home or self-care (01) | DRG 313 ==
LOC: ER 09:50 → 5 SOUTH 12:55
PROVIDERS: ADMIT Internal Medicine; ATTEND Internal Medicine
DX: R07.89 Other chest pain (principal); E11.9 Type 2 diabetes mellitus without complications; E66.9 Obesity, unspecified; Z68.33 Body mass index [BMI] 33.0-33.9, adult; E78.00 Pure hypercholesterolemia, unspecified; E78.5 Hyperlipidemia, unspecified; I10 Essential (primary) hypertension; J45.909 Unspecified asthma, uncomplicated; K21.9 Gastro-esophageal reflux disease without esophagitis; Z82.49 Family history of ischemic heart disease and other diseases of the circulatory system; F12.90 Cannabis use, unspecified, uncomplicated; F32.9 Major depressive disorder, single episode, unspecified; Z88.0 Allergy status to penicillin; Z88.2 Allergy status to sulfonamides; Z88.8 Allergy status to other drugs, medicaments and biological substances; Z90.49 Acquired absence of other specified parts of digestive tract; E28.2 Polycystic ovarian syndrome; F17.210 Nicotine dependence, cigarettes, uncomplicated; F41.9 Anxiety disorder, unspecified; Z90.6 Acquired absence of other parts of urinary tract; Z80.9 Family history of malignant neoplasm, unspecified; R42 Dizziness and giddiness
CPT/HCPCS: 36415; 71010; 78452; 80048; 80061; 80307; 81001; 81025; 82553; 82962; 83735; 83880; 84443; 84484; 85027; 85379; 85610; 93005; 93017; 93306; 94250; 94640; 94760; 96374; 96375; 96376; A9500; C1887; J1815; J2785; J7613; J7626; 99285-25; G0479

== ENCOUNTER → 2017-01-22 | Outpatient (CLI) | payer BC ==
[2017-01-22] VITALS (8 sets, daily range): BP systolic 106–135; BP diastolic 60–77
[~2017-01-22] VITALS: Ht 165.1 cm; Wt 93.9 kg
[~2017-01-22] MED LIST changes: +0.9 % SODIUM CHLORIDE 10 ML DISP.SYRIN. IV PRN; +COLE1TAB2 PO; +CONTRAST GIVEN MC PRN; +ESCITALOPRAM OX10 MG PO; +IODIXANOL 320 MG/ML 100 ML VIAL. IART ONE; +IV NORMAL SALINE 1000ML BAG 1,000 ML IV SCH; +LIDOCAINE 2% 20 ML VIAL. IJ ONE; +LIDOCAINE 2% 20 ML VIAL. ONE; +MIDAZOLAM HCL/PF 5 MG/5 ML VIAL. IV ONE; +MIDAZOLAM HCL/PF 5 MG/5 ML VIAL. ONE; +NITROGLYCERIN SUBLINGUAL 0.4 MG BOTTLE OF 25. SL PRN; +SIMV10TA3 PO; +fentaNYL PF VIAL 100 MCG/2 ML VIAL IV ONE; +fentaNYL PF VIAL 100 MCG/2 ML VIAL ONE; +oxyCODONE/APAP 5/325 1 TAB TABLET PO PRN
[2017-01-22 07:00] LABS: HEMATOCRIT 46.3 % (36.0-47.0); HEMOGLOBIN 15.4 g/dL (12.0-15.5); RED BLOOD COUNT 5.24 x10^6/uL (3.50-5.40); RED CELL DISTRIBUTION WIDTH 14.8 % (11.5-14.5); WHITE BLOOD COUNT 6.9 x10^3/uL (4.0-11.0)
[2017-01-22 07:02] LABS: CALCIUM 9.2 mg/dL (8.5-10.1); CREATININE 0.6 mg/dL (0.6-1.0); GFR 105.4; POTASSIUM 4.5 mmol/L (3.5-5.1)
[2017-01-22 07:21] LABS: INR 1.1 (0.8-1.1); PROTHROMBIN TIME PATIENT 13.1 SEC (11.7-14.0)
--- NOTE | 2017-01-22 09:08 | PDOC ---
MODERATE SEDATION ASSESSMENT RISKS/ALTERNATIVES Risks/Alternatives Risks and alternatives of this type of sedation and procedure discussed with: RISK/ALTERNATIVES: Patient H & P ON CHART H & P H & P on chart and reviewed for co-morbid conditions and appropriate labs. H&P ON CHART: Yes STATUS PREG STATUS ASSESSED: Yes MEDS/ALLERGIES REVIEWED Meds/Allergies Reviewed Medications and Allergies including time and route of recently administered narcotics and sedatives. MEDS/ALLERGIES REVIEWED: Yes ASA RATING ASA RATING: II AIRWAY ASSESSMENT Airway Assessment Airway patency, oral function limitations, presence of caps, crowns, dentures, partials, and ability to extend neck assessed. AIRWAY ASSESSMENT: Yes MALLAMPATI SCORE MALLAMPATI SCORE: II PRE-SEDATION ASSESSMENT PRE-SEDATION ASSESSMENT: Yes CAILIN PAPPAS MD Jan 22, 2017 09:08
--- NOTE | 2017-01-23 11:26 | CARD ---
APPROVED REPORT Procedures Left heart catheterization Left ventriculogram Selective coronary angiogram The patient is a pleasant 51-year-old female with recurrent episodes of exertional chest pain. She wilson s risk factors of diabetes, hypertension and obesity. With recurrent pain a cardiac catheterization w as recommended. Risks and benefits were discussed with the patient. She agreed to proceed. After informed consent was obtained the patient was brought to the heart catheterization lab. The are a of the right femoral artery was prepared the usual manner with Betadine, sterile draping and local anesthetic. An 18-gauge needle was used to enter the right femoral artery, a wire placed and a 6 Fren ch sheath placed over the wire. A 6 Australian JL4 diagnostic catheter was used to engage the left frazier ry system and sequential injections in various views were obtained. A 6 Australian diagnostic Wei ri ght catheter was used to engage the right coronary artery and sequential injections in various views were obtained. A pigtail catheter was advanced to the ascending aorta and then the left ventricle. A 30 URIAS left ventriculogram was performed. Pullback pressures were measured. The catheter was removed from the patient. Injection the sheath showed normal placement. The sheath was removed and sealed wi th an Angio-Seal product. Findings. Hemodynamics. LV 126/14 aortic root 124/68. Coronaries Left main. The left main was a normal-size vessel with no lesions. Left anterior descending. The LAD was a moderate size vessel with normal distribution. It had no lesi ons. Left circumflex. The left circumflex is a moderate size vessel. It had slight proximal tapering of 5- 10%. Right coronary artery. The right coronary was a moderate size vessel. It had a smooth proximal 10-15% lesion. Left ventriculogram. The left ventricle showed normal left ventricular systolic function with an ejection fraction of 55-6 0%. <Conclusion> Minimal coronary artery disease with no hemodynamically significant lesions. Normal left ventricular systolic function.
== END | disposition home or self-care (01) ==
LOC: CCL 06:22
PROVIDERS: ATTEND Internal Medicine Cardiovascular Disease
DX: I25.10 Atherosclerotic heart disease of native coronary artery without angina pectoris (principal); E78.00 Pure hypercholesterolemia, unspecified; I10 Essential (primary) hypertension; E66.9 Obesity, unspecified; Z68.34 Body mass index [BMI] 34.0-34.9, adult; E11.9 Type 2 diabetes mellitus without complications; F41.9 Anxiety disorder, unspecified; F32.9 Major depressive disorder, single episode, unspecified; F17.200 Nicotine dependence, unspecified, uncomplicated; Z88.0 Allergy status to penicillin; Z98.890 Other specified postprocedural states; Z86.39 Personal history of other endocrine, nutritional and metabolic disease; Z88.2 Allergy status to sulfonamides; Z88.8 Allergy status to other drugs, medicaments and biological substances
CPT/HCPCS: 36415; 80048; 85027; 85610; 93458; 99152; 99153; C1769; C1771; C1892; G0269; J1644; J2250; J3010; J7030; J2001